=== PATIENT | male | born 1980 | race Caucasian/White ===

== ENCOUNTER 2016-09-14 12:50 | Emergency (ER) | payer OTHER, BC ==
[~2016-09-14] VITALS: Ht 180.3 cm; Wt 105.5 kg
[~2016-09-14 12:50] MED LIST: ALBU1AER9 INH; HYOS1TAB PO; SUMA6KIT IM
[2016-09-14 12:55] VITALS: TEMP 36.4; Ht 180.3 cm; Wt 105.5 kg
[2016-09-14] MEDS ORDERED: LEVO5TAB2 PO (13:04)
[2016-09-14] MEDS ORDERED: MDRDP21 PO (13:04)
[2016-09-14] MEDS ORDERED: DOXY100C2 PO (13:04)
[2016-09-14] MEDS ORDERED: KETOROLAC TROMETHAMINE 60 MG/2 ML VIAL IM STA (13:05)
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
[2016-09-14] MEDS ORDERED: HYDR-5688 PO (14:12)
[2016-09-14] MEDS ORDERED: CYCL10TA6 PO (14:12)
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
[2016-09-14 14:27] VITALS: BP 121/78; PULSE 81; O2SAT 98
== END 2016-09-14 14:28 | disposition home or self-care (01) ==
LOC: C.EDB 12:52 → C.EDD 14:28
DX: S16.1XXA Strain of muscle, fascia and tendon at neck level, initial encounter (principal); S46.911A Strain of unspecified muscle, fascia and tendon at shoulder and upper arm level, right arm, initial encounter; J45.909 Unspecified asthma, uncomplicated; Z79.899 Other long term (current) drug therapy; Z87.09 Personal history of other diseases of the respiratory system; Z87.19 Personal history of other diseases of the digestive system; Z83.3 Family history of diabetes mellitus; V43.52XA Car driver injured in collision with other type car in traffic accident, initial encounter

== ENCOUNTER → 2016-10-19 | Outpatient (CLI) | payer BC ==
[~2016-10-19] MED LIST changes: -ALBU1AER9 INH; +DOXY100C2 PO; +HYDR-5688 PO; -HYOS1TAB PO; +LEVO5TAB2 PO; +MDRDP21 PO; -SUMA6KIT IM
--- NOTE | 2016-10-19 16:45 | DIAGNOSTIC IMAGING REPORT ---
MRI right knee RIGHT LOWER EXT JOINT WITHOUT CLINICAL HISTORY: RIGHT KNEE PAIN Right pain TECHNIQUE: MRI multi axial acquisition COMPARISON STUDY: None FINDINGS: Signal characteristics the osseous structures are unremarkable. There is minimal degenerative subchondral cyst formation anterior aspect lateral femoral condyle. There are findings of moderate degenerative thinning of the articular services of the lateral and to a lesser extent medial joint compartment. Anterior and posterior cruciate ligaments are intact. Evaluation of the menisci shows no evidence for acute meniscal tear. Slight truncation mid medial meniscus possibly postoperative Patellofemoral joint shows a minimal degree of chondromalacia patella. Articular services thinning is present. Medial and lateral patellar retinaculum appear to be intact. IMPRESSION: 1. Mild degenerative change of the articular services of all major joint compartments. 2. Mild chondromalacia patella. 3. All major ligamentous and tendinous structures appear intact. Slight truncation mid apex medial meniscus possibly postoperative Electronically signed by: Keo Marti M.D. 10/19/2016 4:44 PM Dictated Date/Time: 10/19/2016 4:41 PM
== END ==
LOC: C.MRIBC 15:23
PROVIDERS: ATTEND Orthopaedic Surgery
DX: M25.561 Pain in right knee (principal)

== ENCOUNTER → 2017-04-16 | Outpatient (CLI) | payer BC ==
[~2017-04-16] MED LIST changes: -HYDR-5688 PO
[2017-04-16 12:25] LABS: BASO % 0.3 %; BASO ABS # 0.03 K/uL (0-0.2); EOS % 4.6 %; EOS ABS # 0.53 K/uL (0-0.5); HEMATOCRIT 44.9 % (42-52); HEMOGLOBIN 15.4 g/dL (14.0-18.0); IG# 0.02 K/uL (0.00-0.02); LYMPH % 25.2 %; LYMPH ABS # 2.92 K/uL (1.2-3.4); MEAN CELL VOLUME 90.3 fL (80-100); MEAN CORPUSCULAR HGB CONC 34.3 g/dl (32-36); MONO % 6.2 %; MONO ABS # 0.72 K/uL (0.11-0.59); NEUT % 63.5 %; NEUT ABS # 7.36 K/uL (1.4-6.5); PLATELET COUNT 410 K/uL (130-400); RED CELL DISTRIBUTION WIDTH CV 13.1 % (11.5-14.5); RED CELL DISTRIBUTION WIDTH SD 43.2 fL (36.4-46.3); WHITE BLOOD COUNT 11.58 K/uL (4.8-10.8)
[2017-04-16 12:37] LABS: BLOOD UREA NITROGEN 12 mg/dl (7-18); CALCIUM 8.9 mg/dl (8.5-10.1); CARBON DIOXIDE 30 mmol/L (21-32); CREATININE 0.96 mg/dl (0.60-1.40); GLUCOSE 98 mg/dl (70-99); POTASSIUM 4.1 mmol/L (3.5-5.1); SODIUM 134 mmol/L (136-145)
[2017-04-16 13:00] LABS: MONOSPOT NEG (NEG)
[2017-04-17 13:57] LABS: EBV EARLY ANTIGEN AB < 9.00 U/ML
== END | disposition home or self-care (01) ==
LOC: C.LABPBG 08:40
PROVIDERS: ATTEND Physician Assistant
DX: R53.83 Other fatigue (principal); J06.9 Acute upper respiratory infection, unspecified

== ENCOUNTER 2017-05-19 16:52 | Emergency (ER) | payer BC ==
[~2017-05-19] VITALS: Ht 180.3 cm; Wt 135.6 kg
[2017-05-19 16:54] VITALS: TEMP 37.1; Ht 180.3 cm; Wt 135.6 kg
[2017-05-19] MEDS ORDERED: IBUP-1050 PO (17:14)
[2017-05-19] MEDS ORDERED: CEPH500C2 PO (17:14)
[2017-05-19] MEDS ORDERED: OXYC1CAP5 PO (17:14)
[2017-05-19 17:41] LABS: BASO % 0.5 %; BASO ABS # 0.05 K/uL (0-0.2); EOS % 4.2 %; EOS ABS # 0.46 K/uL (0-0.5); HEMATOCRIT 42.9 % (42-52); HEMOGLOBIN 15.1 g/dL (14.0-18.0); IG# 0.03 K/uL (0.00-0.02); LYMPH % 32.2 %; LYMPH ABS # 3.49 K/uL (1.2-3.4); MEAN CELL VOLUME 88.8 fL (80-100); MEAN CORPUSCULAR HEMOGLOBIN 31.3 pg (25-34); MEAN CORPUSCULAR HGB CONC 35.2 g/dl (32-36); MEAN PLATELET VOLUME 9.4 fL (7.4-10.4); MONO % 6.9 %; MONO ABS # 0.75 K/uL (0.11-0.59); NEUT % 55.9 %; NEUT ABS # 6.05 K/uL (1.4-6.5); PLATELET COUNT 405 K/uL (130-400); RED CELL DISTRIBUTION WIDTH CV 12.8 % (11.5-14.5); RED CELL DISTRIBUTION WIDTH SD 41.4 fL (36.4-46.3); WHITE BLOOD COUNT 10.83 K/uL (4.8-10.8)
[2017-05-19 17:57] LABS: CALCIUM 10.1 mg/dl (8.5-10.1); CREATININE 0.91 mg/dl (0.60-1.40)
--- NOTE | 2017-05-19 18:07 | DIAGNOSTIC IMAGING REPORT ---
L VENOUS DOPP LOWER EXT UNILAT HISTORY: 36 years-old Male lle pain and swelling acute left lower extremity pain and swelling COMPARISON: None available TECHNIQUE: Multiple real-time sonogram images of the left lower extremity deep venous structures were obtained assessing grayscale appearance, color and spectral flow FINDINGS: There is an ovoid linear hypoechoic complex collection seen within the lateral mid to distal calf at the area of concern measuring 9.4 x 0.8 x 2.0 cm which appears to be present within the deep subcutaneous tissues without internal vascularity identified. There is normal flow, phasicity, compressibility and augmentation of the left lower extremity deep venous structures. IMPRESSION: 1. No sonographic evidence of deep venous thrombosis. 2. Ovoid linear hypoechoic complex collection within the lateral mid to distal calf at the area of concern measures up to 9.4 cm in length suggesting possible hematoma. Correlate with clinical exam and patient history. The above report was generated using voice recognition software. It may contain grammatical, syntax or spelling errors. Electronically signed by: Ector Dobson M.D. 05/19/2017 6:06 PM Dictated Date/Time: 05/19/2017 6:04 PM
[2017-05-19 18:33] LABS: INR 0.9 (0.9-1.1)
[2017-05-19 19:26] VITALS: BP 136/81; PULSE 79; O2SAT 97
--- NOTE | 2017-05-19 23:53 | EMERGENCY ROOM VISIT NOTE ---
History Report prepared by Radha: Karime Bermudez Under the Supervision of: Mio LermaO. First contact with patient: 16:58 Chief Complaint: LEG PAIN,LEG INJURY Stated Complaint: LEG PAIN POST SURGERY, POSSIBLE CLOT History of Present Illness The patient is a 36 year old male who presents to the Emergency Room with complaints of persistent left leg pain secondary to surgery that began 2 days ago. He notes that his leg started swelling. The patient states that he had surgery 6 days ago for his chronic compartment syndrome. He notes that he feels tingling and numbness in leg when he stands up and has difficulty putting weight on it because it makes the pain worse. He has no weakness in the leg. Tingling is only in the toes when he stands up. The patient has been taking Doxycycline, post surgery. Pt denies headache, change in vision, fevers, chest pain, shortness of breath, nausea, vomiting, diarrhea, pain with urination, and melena. Source of History: patient Onset: 2 days ago Position: leg (left) Quality: tingling, numbness Timing: other (persistent) Associated Symptoms: No fevers, No headache, No chest pain, No SOB, No nausea, No vomiting, No melena, No diarrhea, No urinary symptoms Review of Systems See HPI for pertinent positives & negatives. A total of 10 systems reviewed and were otherwise negative. Past Medical & Surgical Medical Problems: (1) Asthma (2) Diverticulosis (3) History of orthopedic surgery (4) Migraine (5) Pneumonia Surgical Problems: (1) History of cholecystectomy Family History Diabetes mellitus Social History Smoking Status: Never Smoker Alcohol Use: occasionally Marital Status: single Occupation Status: employed Current/Historical Medications Scheduled Cephalexin Monohydrate (Keflex), 500 MG PO QID Levocetirizine Dihydrochloride (Xyzal), 1 TAB PO DAILY Scheduled PRN Ibuprofen (Advil), 200-600 MG PO Q4H PRN for Pain Oxycodone Hcl (Oxycodone Hcl), 5 MG PO Q4H PRN for Pain Allergies Coded Allergies: Erythromycin (Verified Allergy, Severe, vomiting, 05/19/17) Sulfisoxazole (Verified Allergy, Severe, vomiting, 05/19/17) Levofloxacin (Verified Adverse Reaction, Unknown, DIZZINESS, 05/19/17) MEMORY LOSS/ZONED OUT Physical Exam Vital Signs Date Time Temp Pulse Resp B/P (MAP) Pulse Ox O2 Delivery O2 Flow Rate FiO2 05/19/17 19:26 79 16 136/81 97 05/19/17 17:32 90 20 138/84 95 Room Air 05/19/17 16:54 37.1 105 20 132/90 96 Room Air Physical Exam GENERAL: Sitting up in bed, alert, well appearing, well nourished, no distress, non-toxic EYE EXAM: normal conjunctiva. OROPHARYNX: no exudate, no erythema, lips, buccal mucosa, and tongue normal and mucous membranes are moist NECK: supple, no nuchal rigidity, no adenopathy, non-tender LUNGS: Clear to auscultation. Normal chest wall mechanics HEART: no murmurs, S1 normal and S2 normal ABDOMEN: abdomen soft, non-tender, normo-active bowel sounds, no masses, no rebound or guarding. . SKIN: no rashes and no bruising UPPER EXTREMITIES: upper extremities are grossly normal. LOWER EXTREMITIES: Bandages in bilateral lateral calves, left calve with bruising, left slightly large than right. Acute tenderness in distal and anterior charles, with bruising 2 inches circumferentially. DP and PT 2/4. NEURO EXAM: Normal sensorium, cranial nerves II-XII grossly intact, normal speech, no gross weakness of arms, no gross weakness of legs. Medical Decision & Procedures ER Provider Diagnostic Interpretation: Radiology results as stated below per my review and the radiologist's interpretation: L VENOUS DOPP LOWER EXT UNILAT HISTORY: 36 years-old Male lle pain and swelling acute left lower extremity pain and swelling COMPARISON: None available TECHNIQUE: Multiple real-time sonogram images of the left lower extremity deep venous structures were obtained assessing grayscale appearance, color and spectral flow FINDINGS: There is an ovoid linear hypoechoic complex collection seen within the lateral mid to distal calf at the area of concern measuring 9.4 x 0.8 x 2.0 cm which appears to be present within the deep subcutaneous tissues without internal vascularity identified. There is normal flow, phasicity, compressibility and augmentation of the left lower extremity deep venous structures. IMPRESSION: 1. No sonographic evidence of deep venous thrombosis. 2. Ovoid linear hypoechoic complex collection within the lateral mid to distal calf at the area of concern measures up to 9.4 cm in length suggesting possible hematoma. Correlate with clinical exam and patient history. The above report was generated using voice recognition software. It may contain grammatical, syntax or spelling errors. Electronically signed by: Ector Dobson M.D. 05/19/2017 6:06 PM Dictated Date/Time: 05/19/2017 6:04 PM Laboratory Results 05/19/17 17:23 Red Blood Count 4.83, Mean Corpuscular Volume 88.8, Mean Corpuscular Hemoglobin 31.3, Mean Corpuscular Hemoglobin Concent 35.2, Mean Platelet Volume 9.4, Neutrophils (%) (Auto) 55.9, Lymphocytes (%) (Auto) 32.2, Monocytes (%) (Auto) 6.9, Eosinophils (%) (Auto) 4.2, Basophils (%) (Auto) 0.5, Neutrophils # (Auto) 6.05, Lymphocytes # (Auto) 3.49, Monocytes # (Auto) 0.75, Eosinophils # (Auto) 0.46, Basophils # (Auto) 0.05 05/19/17 17:23 Test 05/19/17 17:23 05/19/17 18:10 White Blood Count 10.83 K/uL (4.8-10.8) Red Blood Count 4.83 M/uL (4.7-6.1) Hemoglobin 15.1 g/dL (14.0-18.0) Hematocrit 42.9 % (42-52) Mean Corpuscular Volume 88.8 fL (80-100) Mean Corpuscular Hemoglobin 31.3 pg (25-34) Mean Corpuscular Hemoglobin Concent 35.2 g/dl (32-36) Platelet Count 405 K/uL (130-400) Mean Platelet Volume 9.4 fL (7.4-10.4) Neutrophils (%) (Auto) 55.9 % Lymphocytes (%) (Auto) 32.2 % Monocytes (%) (Auto) 6.9 % Eosinophils (%) (Auto) 4.2 % Basophils (%) (Auto) 0.5 % Neutrophils # (Auto) 6.05 K/uL (1.4-6.5) Lymphocytes # (Auto) 3.49 K/uL (1.2-3.4) Monocytes # (Auto) 0.75 K/uL (0.11-0.59) Eosinophils # (Auto) 0.46 K/uL (0-0.5) Basophils # (Auto) 0.05 K/uL (0-0.2) RDW Standard Deviation 41.4 fL (36.4-46.3) RDW Coefficient of Variation 12.8 % (11.5-14.5) Immature Granulocyte % (Auto) 0.3 % Immature Granulocyte # (Auto) 0.03 K/uL (0.00-0.02) Anion Gap 11.0 mmol/L (3-11) Est Creatinine Clear Calc Drug Dose 156.3 ml/min Estimated GFR () 124.3 Estimated GFR (Non- 107.3 BUN/Creatinine Ratio 11.9 (10-20) Calcium Level 10.1 mg/dl (8.5-10.1) Prothrombin Time 9.7 SECONDS (9.0-12.0) Prothromb Time International Ratio 0.9 (0.9-1.1) Laboratory results per my review. ED Course ED COURSE: Vital signs were reviewed and showed normal vitals. The patients medical record was reviewed The above diagnostic studies were performed and reviewed. ED treatments and interventions as stated above. 1659: The patient was evaluated in room C1. A complete history and physical examination was performed. 174: I reevaluated the patient, who was resting. 182: I reviewed the patient's case with Dr. Mckenzie, [facility]. He recommends the patient follow up as an outpatient. 1853: Upon reevaluation, the patient is feeling better. I discussed the findings and the treatment plan with the patient. He verbalizes agreement and understanding. The patient was discharged home. Medical Decision Differential diagnosis: Etiologies such as DVT, compartment syndrome, musculoskeletal, infection, joint effusion, trauma, lymphedema, idiopathic, CHF, as well as others were entertained. Patient is a 36-year-old male who presents to ER who had chronic department syndrome with bilateral fasciotomy performed 6 days ago. 2 days ago he started to have worsening pain at the distal portion of his left fasciotomy. It is pinpoint in nature and circumferentially is about 2 inches. He does have bruising at this location. Neurovascularly intact. Duplex shows a clot in this location. No DVT. Discussed with his with his orthopedic surgeon who recommends following up as an outpatient. Patient and family were updated at bedside. He was discharged follow-up as an outpatient. Compartments were Soft. Good pulses. Discussed with Pt concerning signs and symptoms to watch out for. Pt was instructed to follow up with their PCP and discussed with the patient their option to return to the ED at anytime for persistent or worsening symptoms. The appropriate anticipatory guidance and out-patient management, including indications for return to the emergency department, were explained at length to the patient and understood. Medication Reconcilliation Current Medication List: was personally reviewed by me Blood Pressure Screening Patient's blood pressure: Normal blood pressure Consults Time Called: 1824 Consulting Physician: Vivek Houser- [facility]oped[facility] Returned Call: 1824 I reviewed the patient's case with [facility]. He recommends the patient follow up as an outpatient. Impression Primary Impression: Post-op bleeding Additional Impression: Leg pain, left Scribe Attestation The scribe's documentation has been prepared under my direction and personally reviewed by me in its entirety. I confirm that the note above accurately reflects all work, treatment, procedures, and medical decision making performed by me. Departure Information Dispostion Home / Self-Care Referrals Edison Haddad M.D. (PCP) Forms HOME CARE DOCUMENTATION FORM, IMPORTANT VISIT INFORMATION Patient Instructions My [facility] Additional Instructions Please follow up with your primary care doctor with in the next 24 hours. Any worsening of your symptoms, please return to the ED immediately. This includes any fevers greater than 100.4, worsening pain, chest pain, shortness breath, persistent nausea, vomiting, unable to eat or drink, or any other concerning signs or symptoms from your standpoint. Please take tylenol or Motrin as needed for pain. Problem Qualifiers Primary Impression: Post-op bleeding Surgical complication system/body Area: subcutaneous tissue Procedure type: non-dermatologic Qualified Codes: L76.22 - Postprocedural hemorrhage of skin and subcutaneous tissue following other procedure
== END 2017-05-19 19:13 | disposition home or self-care (01) ==
LOC: C.EDB 16:54 → C.EDC 19:13
DX: L76.22 Postprocedural hemorrhage of skin and subcutaneous tissue following other procedure (principal); M79.605 Pain in left leg; J45.909 Unspecified asthma, uncomplicated; G43.909 Migraine, unspecified, not intractable, without status migrainosus; K57.90 Diverticulosis of intestine, part unspecified, without perforation or abscess without bleeding; Z83.3 Family history of diabetes mellitus

== ENCOUNTER 2023-06-25 15:05 | Observation (INO) ==
--- NOTE | 2023-06-25 16:30 | Emergency Department Note ---
History of Present Illness General Chief complaint: TIA Symptoms Time Seen by Provider: 06/25/23 16:03 History of Present Illness Provider complaint: Multiple complaints Maximum Pain Intensity: 8 42-year-old male presents emergency department for multiple complaints. Patient states that 3 weeks ago he had COVID-19. He reports on June 19 he started having left-sided facial numbness. He states he was seen by his dentist and told he has chronic sinus infections was prescribed a Z-Jasper and his symptoms got better 2 days later. Patient reports that on June 21 he started having left-sided abdominal pain was seen in the emergency department discharged home. Patient reports that on June 22 he started having right-sided facial paresthesias. He reports that today at 1 PM he started having difficulty seeing felt lightheaded felt confused and then felt like his right arm was shaking. Home Medications Medication Instructions Recorded Confirmed Type sumatriptan succinate 6 mg/0.5 mL 6 mg (0.5 mL) subcut DIRECTED 06/20/20 06/25/23 Rx subcutaneous solution PRN Migraine Headache #2 mL albuterol sulfate 2.5 mg/3 mL 2.5 mg (3 mL) inhalation QID PRN 04/27/22 06/25/23 Rx (0.083 %) solution for nebulization Shortness Of Breath Or Wheezing #75 mL albuterol sulfate 90 mcg/actuation 2 puff inhalation DIRECTED PRN 08/14/22 06/25/23 Rx aerosol inhaler Shortness Of Breath Or Wheezing #8.5 grams celecoxib 200 mg capsule (Celebrex) 200 mg PO DAILY PRN pain 30 days 02/20/23 06/25/23 Rx #30 caps ergocalciferol (vitamin D2) 1,250 1,250 mcg PO Q7D #12 caps 06/18/23 06/25/23 Rx mcg (50,000 unit) capsule tirzepatide 2.5 mg/0.5 mL 2.5 mg subcut WK 06/25/23 06/25/23 History subcutaneous pen injector (Eladio) Allergies Allergy/AdvReac Type Severity Reaction Status Date / Time erythromycin base Allergy Severe vomiting Verified 06/25/23 14:13 sulfisoxazole Allergy Severe vomiting Verified 06/25/23 14:13 amoxicillin [From Augmentin] AdvReac Intermediate Dizziness Verified 06/25/23 14:13 /Chest tightness / fast heart beat clavulanic acid AdvReac Intermediate Dizziness Verified 06/25/23 14:13 [From Augmentin] / chest tightness / fast heart beat levofloxacin AdvReac Intermediate DIZZINESS Verified 06/25/23 14:13 / COGNITIVE ISSUES prednisone AdvReac Unknown Unknown Verified 06/25/23 14:13 doxycycline AdvReac Intermediate Back Pain Uncoded 06/25/23 14:13 Past Med/Surg History Medical History Somatic dysfunction of both lower extremities Nocturnal hypoxemia BMI greater than 40 Elevated LFTs Obstructive sleep apnea Asthma Musculoskeletal chest pain Mononucleosis Leg pain, left Ileus Abdominal pain Diverticulosis RUQ abdominal pain History of orthopedic surgery Pneumonia Asthma Surgical History Status post excision of lipoma (11/24/15) Left upper abdomen. History of surgery on left wrist History of cholecystectomy (08/28/13) History of arthroscopy of right shoulder (11/08/15) Impingement syndrome of right shoulder s/p subacromial decompression with partial acromioplasty and Eliane procedure. History of arthroscopy of left knee (11/21/16) Right medial menisectomy History of ankle surgery (06/27/17) left. Removal of deep implant. Family History Father Hearing loss Allergies Brother Asthma Allergies Mother Allergies Other Arthritis Sinusitis Denies family history of Ovarian cancer Prostate cancer Myocardial infarction Breast cancer Lung cancer Colorectal cancer Stroke Social History Smoking Status: Never smoker Second Hand Exposure: No; Do You Dip or Chew Tobacco: No; Hx Alcohol Use: No Hx Substance Use: No Preferred Language: Bolivian Communication Ability: Effective Visual Impairment: Limited Hearing Ability: Normal Manager Of Photography Required: No Beliefs That Will Affect Care: None marital status: Current Living Situation: Spouse and Family Current Living Situation Comment: 2 kids current occupational status: employed 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 How many Children do You have: 2 Feels Safe at Home: Yes Childhood Exposure to Second-Hand Smoke: No Dental Care, Regularly: Yes Physical Activity Frequency: Does not Exercise Seatbelt Use: always Sunscreen Use: Yes Assistive Devices: None Physical Exam Vital Signs Vital Signs - 24 hr 06/25/23 15:18 06/25/23 15:24 06/25/23 15:30 Temperature 36.8 C Temperature Source Oral Pulse Rate 86 91 H Pulse Rate [Apical] 91 H Pulse Rate from SpO2 Sensor Pulse Rhythm [Apical] Regular Pulse Strength [Apical] Normal Respiratory Rate 21 20 Respiratory Effort / Characteristics Non-Labored Non-Labored Spontaneous Respiratory Depth Normal Normal Respiratory Pattern Regular Regular Blood Pressure 135/97 Blood Pressure [Right Arm] 137/94 Blood Pressure Mean 109 Blood Pressure Mean [Right Arm] 108 Blood Pressure Position [Right Arm] Semi-fowlers Pulse Oximetry 97 98 Oxygen Delivery Method Room Air Room Air Sepsis Recent Fever Within 48 Hours No Sepsis New/Unexplained Change in Mental Status No Sepsis Action Taken by Nursing No Action Required 06/25/23 16:30 06/25/23 17:16 06/25/23 18:17 Temperature Temperature Source Pulse Rate 84 91 H Pulse Rate [Apical] Pulse Rate from SpO2 Sensor 85 91 H Pulse Rhythm [Apical] Pulse Strength [Apical] Respiratory Rate 17 16 Respiratory Effort / Characteristics Respiratory Depth Respiratory Pattern Blood Pressure 136/87 152/95 H 118/93 Blood Pressure [Right Arm] Blood Pressure Mean 103 113 101 Blood Pressure Mean [Right Arm] Blood Pressure Position [Right Arm] Pulse Oximetry 97 97 96 Oxygen Delivery Method Room Air Sepsis Recent Fever Within 48 Hours Sepsis New/Unexplained Change in Mental Status Sepsis Action Taken by Nursing 06/25/23 18:30 06/25/23 19:00 06/25/23 19:15 Temperature Temperature Source Pulse Rate 88 91 H 92 H Pulse Rate [Apical] Pulse Rate from SpO2 Sensor 90 91 H Pulse Rhythm [Apical] Pulse Strength [Apical] Respiratory Rate 14 13 Respiratory Effort / Characteristics Respiratory Depth Respiratory Pattern Blood Pressure 129/91 132/87 Blood Pressure [Right Arm] Blood Pressure Mean 103 102 Blood Pressure Mean [Right Arm] Blood Pressure Position [Right Arm] Pulse Oximetry 94 95 Oxygen Delivery Method Room Air Sepsis Recent Fever Within 48 Hours Sepsis New/Unexplained Change in Mental Status Sepsis Action Taken by Nursing 06/25/23 20:48 06/25/23 20:48 Temperature 36.8 C 36.8 C Temperature Source Oral Oral Pulse Rate Pulse Rate [Apical] 91 H 87 Pulse Rate from SpO2 Sensor Pulse Rhythm [Apical] Regular Regular Pulse Strength [Apical] Normal Normal Respiratory Rate 14 14 Respiratory Effort / Characteristics Non-Labored Spontaneous Non-Labored Spontaneous Respiratory Depth Normal Normal Respiratory Pattern Regular Regular Blood Pressure Blood Pressure [Right Arm] 139/98 139/98 Blood Pressure Mean Blood Pressure Mean [Right Arm] 111 111 Blood Pressure Position [Right Arm] Semi-fowlers Semi-fowlers Pulse Oximetry 95 96 Oxygen Delivery Method Room Air Room Air Sepsis Recent Fever Within 48 Hours Sepsis New/Unexplained Change in Mental Status Sepsis Action Taken by Nursing Physical Exam HENT: Exam performed. - Head: Normocephalic and atraumatic. - Right Ear: External ear normal. No mastoid erythema. Tympanic membrane nation and pearly - Left Ear: External ear normal. No mastoid erythema. Tympanic membrane nation and pearly. - Mouth/Throat: The oropharynx is clear and moist. No trismus in the jaw. No dental abscesses or uvula swelling. No oropharyngeal exudate or tonsillar abscesses. EYES: Conjunctivae and EOM are normal. Pupils are equal, round, and reactive to light. Right eye exhibits no discharge. Left eye exhibits no discharge. No scleral icterus. NECK: Normal range of motion. Neck supple. No JVD present. No rigidity. No tracheal deviation and normal range of motion present. CV: Normal rate, regular rhythm, normal heart sounds and intact distal pulses. There is no peripheral edema. Palpable radial pulses bue. PULM/CHEST: Effort normal and breath sounds normal. No respiratory distress. No stridor. He has no wheezes. He has no rales. ABD: The abdomen is soft. Bowel sounds are normal. He has no distension. No mass is present. There is tenderness to palpation of the left upper quadrant. There is no rebound, no guarding, no Fritz's sign and no tenderness at McBurney's point. Rovsig negative. MUSC/SKEL: Normal range of motion. There is no peripheral edema, tenderness or deformity. LYMPH: No cervical adenopathy. NEURO: He is alert and oriented to person, place, and time. He has normal strength. Right-sided facial droop. Coordination and gait normal. GCS eye subscore is 4. GCS verbal subscore is 5. GCS motor subscore is 6. Cerebellar tests wnl. SKIN: Skin is warm and dry. He is not diaphoretic. PSYCH: Bizarre and anxious affect. Course Course 1603: The patient was evaluated in room C2. A complete history and physical exam was performed Cardiac monitoring: An order was placed for continuous cardiac monitoring. The monitor shows a rate of 90 with sinus rhythm interpreted by me 1900: Vital signs stable. Labs show leukocytosis of 13.41 platelet count elevated at 403 creatinine kinase elevated at 485. Patient has chronically elevated white blood cell and creatinine kinase levels. Urinalysis negative. Imaging is negative. Given the patient's new onset of facial droop and ongoing paresthesias patient will be admitted for neurology evaluation and and MRIs of his brain for possible TIAs. Administered Medications Lorazepam 0.5 mg/ Syringe 0.5 mls @ 2 mls/min IV Q1H PRN PRN Reason: anxiety regarding mri Last Admin: 06/25/23 22:09 Dose: 2 mls/min Documented By: BEBE Discontinued Medications Acetaminophen (Acetaminophen 500 Mg Tab) 1,000 mg PO NOW STA Stop: 06/25/23 20:27 Last Admin: 06/25/23 20:46 Dose: 1,000 mg Documented By: BEBE Ioversol (Optiray 320 125ml) 117 ml IV ONCE ONE Stop: 06/25/23 17:33 Last Admin: 06/25/23 17:32 Dose: 117 ml Documented By: SEBASTIAN Medical Decision Making Medical Records Attestation: I reviewed the patient's medical records. External medical records reviewed. Patient was seen by his PCP today and was sent here as he was concerned that the patient had a TIA versus a migraine headache is in addition to his upper abdominal pain. The patient was reportedly given 381 mg of baby aspirin by the PCP prior to arrival. Patient was seen by Dr. Maharaj rheumatology on May 20, 2023 and was thought to have a complicated case and chronic neck pain. He was referred for neuromuscular referral at [facility]. Patient has multiple visits from December to March [address] Bingham for neck pain and muscle cramping. Laboratory Data Attestation: I reviewed the patient's lab results. 06/25/23 14:30 06/25/23 14:30 Lab Results 06/25/23 06/25/23 06/25/23 Range/Units 14:30 15:30 16:33 WBC 13.41 H (4.8-10.8) K/ul RBC 5.01 (4.70-6.10) M/uL Hgb 15.4 (14.0-18.0) g/dl Hct 43.4 (42.0-52.0) % MCV 86.6 (80.0-100.0) fL MCH 30.7 (25.0-34.0) pg MCHC 35.5 (32.0-36.0) g/dL RDW Std Deviation 39.8 (36.4-46.3) fL RDW Coeff of Jamaal 12.6 (11.5-14.5) % Plt Count 403 H (130-400) K/uL MPV 9.6 (9.4-12.4) fL Immature Gran % (Auto) 0.4 % Neut % (Auto) 74.3 % Lymph % (Auto) 17.6 % Dare % (Auto) 6.3 % Eos % (Auto) 1.0 % Baso % (Auto) 0.4 % Neut # (Auto) 9.97 H (1.40-6.50) K/uL Lymph # (Auto) 2.36 (1.20-3.40) K/uL Dare # (Auto) 0.84 H (0.11-0.59) K/uL Eos # (Auto) 0.14 (0.00-0.50) K/uL Baso # (Auto) 0.05 (0.00-0.20) K/uL Immature Gran # (Auto) 0.05 (0.01-0.20) K/uL PT 10.9 (9.0-12.0) Seconds INR 1.0 (0.9-1.1) APTT 31 (21-31) Seconds PTT Ratio 1.1 Sodium 136 (136-145) mmol/L Potassium 3.6 (3.5-5.1) mmol/L Chloride 103 (98-107) mmol/L Carbon Dioxide 25 (21-32) mmol/L Anion Gap 8 (3-11) BUN 17 (6-23) mg/dl Creatinine 0.97 (0.6-1.4) mg/dl Est Cr Clr Drug Dosing 135.8 ml/min Est GFR ( Amer) 110.4 ml/min Est GFR (Non-Af Amer) 95.2 ml/min BUN/Creatinine Ratio 17.5 (10-20) Glucose 139 H (70-99(Fasting)) mg/dl POC Glucose 141 H (70-99) mg/dl Calcium 10.1 (8.6-10.3) mg/dl Magnesium 1.9 (1.7-2.4) mg/dl Total Bilirubin 0.4 (0.2-1.0) mg/dl AST 35 (13-39) U/L ALT 33 (7-52) U/L Alkaline Phosphatase 91 (34-104) U/L Ammonia 35.0 (18-72) umol/L Total Creatine Kinase 485 H Cancelled (30-223) U/L Troponin I High Sens 4.0 (0-20) pg/ml Total Protein 8.4 H (6.0-8.3) gm/dl Albumin 4.8 (3.4-5.0) gm/dl Globulin 3.6 (2.5-4.0) gm/dl Albumin/Globulin Ratio 1.3 (0.9-2) Lipase 20 (11-82) U/L Prolactin 16.26 ng/ml Urine Color Urine Appearance (Clear) Urine pH (4.5-7.5) Ur Specific [place] (1.000-1.030) Urine Protein (Negative) Urine Glucose (UA) (Negative) Urine Ketones (Negative) Urine Blood (Negative) Urine Nitrite (Negative) Urine Bilirubin (Negative) Urine Urobilinogen (Negative) Ur Leukocyte Esterase (Negative) Ethyl Alcohol mg/dL < 10.0 (<10.0) mg/dl Adenovirus (PCR) (NotDetected) Anaplasma Smear See Comment Babesia Smear See Comment B. pertussis DNA (PCR) (NotDetected) B.parapertussis DNA PCR (NotDetected) Lyme Disease Screen Negative (Negative) C. pneumoniae DNA (PCR) (NotDetected) Coronavirus OC43 (PCR) (NotDetected) Coronavirus HKU1 (PCR) (NotDetected) Coronavirus 229E (PCR) (NotDetected) SARS-CoV-2 (PCR) (NotDetected) Coronavirus NL63 (PCR) (NotDetected) Monoscreen Negative (Negative) Human Metapneumovir PCR (NotDetected) Influenza Type A (PCR) (NotDetected) Influenza Type B (PCR) (NotDetected) M. pneumoniae (PCR) (NotDetected) Parainfluenza 1 (PCR) (NotDetected) Parainfluenza 2 (PCR) (NotDetected) Parainfluenza 3 (PCR) (NotDetected) Parainfluenza 4 (PCR) (NotDetected) RSV (PCR) (NotDetected) Entero/Rhino (PCR) (NotDetected) Blood Type O Positive Antibody Screen NEGATIVE 06/25/23 Range/Units 16:40 WBC (4.8-10.8) K/ul RBC (4.70-6.10) M/uL Hgb (14.0-18.0) g/dl Hct (42.0-52.0) % MCV (80.0-100.0) fL MCH (25.0-34.0) pg MCHC (32.0-36.0) g/dL RDW Std Deviation (36.4-46.3) fL RDW Coeff of Jamaal (11.5-14.5) % Plt Count (130-400) K/uL MPV (9.4-12.4) fL Immature Gran % (Auto) % Neut % (Auto) % Lymph % (Auto) % Dare % (Auto) % Eos % (Auto) % Baso % (Auto) % Neut # (Auto) (1.40-6.50) K/uL Lymph # (Auto) (1.20-3.40) K/uL Dare # (Auto) (0.11-0.59) K/uL Eos # (Auto) (0.00-0.50) K/uL Baso # (Auto) (0.00-0.20) K/uL Immature Gran # (Auto) (0.01-0.20) K/uL PT (9.0-12.0) Seconds INR (0.9-1.1) APTT (21-31) Seconds PTT Ratio Sodium (136-145) mmol/L Potassium (3.5-5.1) mmol/L Chloride (98-107) mmol/L Carbon Dioxide (21-32) mmol/L Anion Gap (3-11) BUN (6-23) mg/dl Creatinine (0.6-1.4) mg/dl Est Cr Clr Drug Dosing ml/min Est GFR ( Amer) ml/min Est GFR (Non-Af Amer) ml/min BUN/Creatinine Ratio (10-20) Glucose (70-99(Fasting)) mg/dl POC Glucose (70-99) mg/dl Calcium (8.6-10.3) mg/dl Magnesium (1.7-2.4) mg/dl Total Bilirubin (0.2-1.0) mg/dl AST (13-39) U/L ALT (7-52) U/L Alkaline Phosphatase (34-104) U/L Ammonia (18-72) umol/L Total Creatine Kinase (30-223) U/L Troponin I High Sens (0-20) pg/ml Total Protein (6.0-8.3) gm/dl Albumin (3.4-5.0) gm/dl Globulin (2.5-4.0) gm/dl Albumin/Globulin Ratio (0.9-2) Lipase (11-82) U/L Prolactin ng/ml Urine Color Yellow Urine Appearance Clear (Clear) Urine pH 6.5 (4.5-7.5) Ur Specific [place] 1.010 (1.000-1.030) Urine Protein Negative (Negative) Urine Glucose (UA) Negative (Negative) Urine Ketones 1+ H (Negative) Urine Blood Negative (Negative) Urine Nitrite Negative (Negative) Urine Bilirubin Negative (Negative) Urine Urobilinogen Negative (Negative) Ur Leukocyte Esterase Negative (Negative) Ethyl Alcohol mg/dL (<10.0) mg/dl Adenovirus (PCR) Not Detected (NotDetected) Anaplasma Smear Babesia Smear B. pertussis DNA (PCR) Not Detected (NotDetected) B.parapertussis DNA PCR Not Detected (NotDetected) Lyme Disease Screen (Negative) C. pneumoniae DNA (PCR) Not Detected (NotDetected) Coronavirus OC43 (PCR) Not Detected (NotDetected) Coronavirus HKU1 (PCR) Not Detected (NotDetected) Coronavirus 229E (PCR) Not Detected (NotDetected) SARS-CoV-2 (PCR) Not Detected (NotDetected) Coronavirus NL63 (PCR) Not Detected (NotDetected) Monoscreen (Negative) Human Metapneumovir PCR Not Detected (NotDetected) Influenza Type A (PCR) Not Detected (NotDetected) Influenza Type B (PCR) Not Detected (NotDetected) M. pneumoniae (PCR) Not Detected (NotDetected) Parainfluenza 1 (PCR) Not Detected (NotDetected) Parainfluenza 2 (PCR) Not Detected (NotDetected) Parainfluenza 3 (PCR) Not Detected (NotDetected) Parainfluenza 4 (PCR) Not Detected (NotDetected) RSV (PCR) Not Detected (NotDetected) Entero/Rhino (PCR) Not Detected (NotDetected) Blood Type Antibody Screen Imaging Data Attestation: I personally reviewed and interpreted this imaging study as follows: My Impression: Chest x-ray negative. Airway clear. No pneumothorax. No consolidation. No cardiomegaly or cephalization.. No free air under the diaphragm. No fractures of the skeletal structures. Radiologist's Impression: Chest X-Ray 06/25/23 16:20 SINGLE VIEW CHEST CLINICAL HISTORY: Neurological deficit. Stroke like symptoms. FINDINGS: 2 AP, portable, upright chest radiographs are compared to chest x-ray and chest CT dated 02/17/2020. The cardiomediastinal silhouette is unremarkable. The lungs and pleural spaces are clear. No pneumothorax is seen. The bony thorax is grossly intact. IMPRESSION: No active disease in the chest. ACT 112: Negative or not required by law. Electronically signed by: Wicho Cruz M.D. 06/25/2023 5:[address] 06/25/23 16:[address] OF THE BRAIN; CT ANGIOGRAM OF THE BRAIN; CT ANGIOGRAM OF THE NECK CLINICAL HISTORY: Neurological deficit. Stroke like symptoms. COMPARISON STUDY: CT of the brain dated 01/04/2023. TECHNIQUE: Unenhanced axial CT scan of the brain is performed. Subsequently, following the IV administration of 117 of Optiray 320, CT angiogram of the head and neck was performed from the aortic arch to the vertex. Images are reviewed in the axial, sagittal, and coronal planes. 3-D MIPS images are created and assessed. IV contrast was administered without complication. All measurements were calculated based on NASCET criteria. A dose lowering technique was utilized adhering to the principles of ALARA. FINDINGS: Brain parenchyma: The brain parenchyma is normal in appearance. There is no hemorrhage, mass effect, or evidence of acute territorial ischemia by CT criteria. There is no evidence of enhancing mass lesion on the angiogram phase images. The ventricles, sulci, and cisterns are normal in configuration. Nation- white matter differentiation is preserved. No extra-axial fluid collection is seen. Thoracic aorta: Visualized portions of the thoracic aorta are normal in caliber. The aortic arch demonstrates standard 3-vessel anatomy. Right carotid arterial system: The right common carotid artery is widely patent, as are the right internal and external carotid arteries. Left carotid arterial system: The left common carotid artery is widely patent, as are the left internal and external carotid arteries. Vertebral arteries: The vertebral arteries are widely patent bilaterally noting left-sided dominance. Subclavian arteries: Widely patent bilaterally. Intracranial vasculature: The internal carotid arteries are patent at the skull base, as are the anterior and middle cerebral arteries bilaterally. The vertebrobasilar system and posterior cerebral arteries are widely patent. The left vertebral artery is dominant. The right vertebral artery and the basilar artery are diminutive. The [place] is developmentally complete. There is no aneurysm, high-grade stenosis, or focal vessel cut off seen throughout the intracranial circulation. Jugular veins: Patent bilaterally. Dural sinuses: Patent. Lung apices: Partially visualized upper lobe lung parenchyma appears clear. Soft tissues: The visualized pharyngeal soft tissues are normal in appearance noting angiographic phase technique. The oropharyngeal airway appears widely patent. The salivary and thyroid glands are normal in appearance. No cervical lymphadenopathy is seen. Skeletal structures: The calvarium appears intact. The cervical spine is maintained noting mild spondylosis. Orbits: The bony orbits are intact. Orbital contents are normal as visualized. Sinuses and mastoids: There is trace mucosal thickening within the maxillary antra, the right sphenoid sinus, and the ethmoid sinuses. The mastoid air cells are well pneumatized. IMPRESSION: 1. There is no hemorrhage, mass effect, or evidence of acute territorial ischemia by CT criteria. 2. Unremarkable CT angiogram of the brain. 3. Unremarkable CT angiogram of the neck. ACT 112: Negative or not required by law. Electronically signed by: Wicho Cruz M.D. 06/25/2023 5:44 PM Head CTA 06/25/23 16:[address] OF THE BRAIN; CT ANGIOGRAM OF THE BRAIN; CT ANGIOGRAM OF THE NECK CLINICAL HISTORY: Neurological deficit. Stroke like symptoms. COMPARISON STUDY: CT of the brain dated 01/04/2023. TECHNIQUE: Unenhanced axial CT scan of the brain is performed. Subsequently, following the IV administration of 117 of Optiray 320, CT angiogram of the head and neck was performed from the aortic arch to the vertex. Images are reviewed in the axial, sagittal, and coronal planes. 3-D MIPS images are created and assessed. IV contrast was administered without complication. All measurements were calculated based on NASCET criteria. A dose lowering technique was utilized adhering to the principles of ALARA. FINDINGS: Brain parenchyma: The brain parenchyma is normal in appearance. There is no hemorrhage, mass effect, or evidence of acute territorial ischemia by CT criteria. There is no evidence of enhancing mass lesion on the angiogram phase images. The ventricles, sulci, and cisterns are normal in configuration. Nation- white matter differentiation is preserved. No extra-axial fluid collection is seen. Thoracic aorta: Visualized portions of the thoracic aorta are normal in caliber. The aortic arch demonstrates standard 3-vessel anatomy. Right carotid arterial system: The right common carotid artery is widely patent, as are the right internal and external carotid arteries. Left carotid arterial system: The left common carotid artery is widely patent, as are the left internal and external carotid arteries. Vertebral arteries: The vertebral arteries are widely patent bilaterally noting left-sided dominance. Subclavian arteries: Widely patent bilaterally. Intracranial vasculature: The internal carotid arteries are patent at the skull base, as are the anterior and middle cerebral arteries bilaterally. The vertebrobasilar system and posterior cerebral arteries are widely patent. The left vertebral artery is dominant. The right vertebral artery and the basilar artery are diminutive. The [place] is developmentally complete. There is no aneurysm, high-grade stenosis, or focal vessel cut off seen throughout the intracranial circulation. Jugular veins: Patent bilaterally. Dural sinuses: Patent. Lung apices: Partially visualized upper lobe lung parenchyma appears clear. Soft tissues: The visualized pharyngeal soft tissues are normal in appearance noting angiographic phase technique. The oropharyngeal airway appears widely patent. The salivary and thyroid glands are normal in appearance. No cervical lymphadenopathy is seen. Skeletal structures: The calvarium appears intact. The cervical spine is maintained noting mild spondylosis. Orbits: The bony orbits are intact. Orbital contents are normal as visualized. Sinuses and mastoids: There is trace mucosal thickening within the maxillary antra, the right sphenoid sinus, and the ethmoid sinuses. The mastoid air cells are well pneumatized. IMPRESSION: 1. There is no hemorrhage, mass effect, or evidence of acute territorial ischemia by CT criteria. 2. Unremarkable CT angiogram of the brain. 3. Unremarkable CT angiogram of the neck. ACT 112: Negative or not required by law. Electronically signed by: Wicho Cruz M.D. 06/25/2023 5:44 PM Neck CTA 06/25/23 16:[address] OF THE BRAIN; CT ANGIOGRAM OF THE BRAIN; CT ANGIOGRAM OF THE NECK CLINICAL HISTORY: Neurological deficit. Stroke like symptoms. COMPARISON STUDY: CT of the brain dated 01/04/2023. TECHNIQUE: Unenhanced axial CT scan of the brain is performed. Subsequently, following the IV administration of 117 of Optiray 320, CT angiogram of the head and neck was performed from the aortic arch to the vertex. Images are reviewed in the axial, sagittal, and coronal planes. 3-D MIPS images are created and assessed. IV contrast was administered without complication. All measurements were calculated based on NASCET criteria. A dose lowering technique was utilized adhering to the principles of ALARA. FINDINGS: Brain parenchyma: The brain parenchyma is normal in appearance. There is no hemorrhage, mass effect, or evidence of acute territorial ischemia by CT criteria. There is no evidence of enhancing mass lesion on the angiogram phase images. The ventricles, sulci, and cisterns are normal in configuration. [place]- white matter differentiation is preserved. No extra-axial fluid collection is seen. Thoracic aorta: Visualized portions of the thoracic aorta are normal in caliber. The aortic arch demonstrates standard 3-vessel anatomy. Right carotid arterial system: The right common carotid artery is widely patent, as are the right internal and external carotid arteries. Left carotid arterial system: The left common carotid artery is widely patent, as are the left internal and external carotid arteries. Vertebral arteries: The vertebral arteries are widely patent bilaterally noting left-sided dominance. Subclavian arteries: Widely patent bilaterally. Intracranial vasculature: The internal carotid arteries are patent at the skull base, as are the anterior and middle cerebral arteries bilaterally. The vertebrobasilar system and posterior cerebral arteries are widely patent. The left vertebral artery is dominant. The right vertebral artery and the basilar artery are diminutive. The [place] is developmentally complete. There is no aneurysm, high-grade stenosis, or focal vessel cut off seen throughout the intracranial circulation. Jugular veins: Patent bilaterally. Dural sinuses: Patent. Lung apices: Partially visualized upper lobe lung parenchyma appears clear. Soft tissues: The visualized pharyngeal soft tissues are normal in appearance noting angiographic phase technique. The oropharyngeal airway appears widely patent. The salivary and thyroid glands are normal in appearance. No cervical lymphadenopathy is seen. Skeletal structures: The calvarium appears intact. The cervical spine is maintained noting mild spondylosis. Orbits: The bony orbits are intact. Orbital contents are normal as visualized. Sinuses and mastoids: There is trace mucosal thickening within the maxillary antra, the right sphenoid sinus, and the ethmoid sinuses. The mastoid air cells are well pneumatized. IMPRESSION: 1. There is no hemorrhage, mass effect, or evidence of acute territorial ischemia by CT criteria. 2. Unremarkable CT angiogram of the brain. 3. Unremarkable CT angiogram of the neck. ACT 112: Negative or not required by law. Electronically signed by: Wicho Cruz M.D. 06/25/2023 5:44 PM Abdomen/Pelvis CT 06/25/23 16:21 CT SCAN OF THE ABDOMEN AND PELVIS WITH IV CONTRAST CLINICAL HISTORY: Left upper quadrant abdominal pain. COMPARISON STUDY: Abdominal CT dated 09/07/2015. TECHNIQUE: Following the IV administration of 117 cc of Optiray 320, CT scan of the abdomen and pelvis is performed from the lung bases to the proximal femora. Images are reviewed in the axial, sagittal, and coronal planes. IV contrast was administered without complication. A dose lowering technique was utilized adhering to the principles of ALARA. CT DOSE: 2670.11 mGy.cm FINDINGS: Lung bases: The heart is normal in size and without pericardial effusion. A 5 mm right lower lobe pulmonary nodule on image #66 is pathologically indeterminant and new from 2016. A 3 mm lingular pulmonary nodule on image #16 is also new from previous. There are scattered calcified granulomas. No airspace consolidation or pleural effusion is identified. Liver: The contrast-enhanced liver is normal in size, contour, and attenuation. There is no intrahepatic biliary ductal dilatation. The hepatic veins and portal veins are patent. Gallbladder: Surgically absent noting clips in the gallbladder fossa. Spleen: Normal in size and attenuation. Pancreas: Unremarkable. Adrenal glands: Unremarkable. Kidneys: The contrast enhanced kidneys are normal in size and without hydronephrosis. The kidneys enhance symmetrically. Abdominal vasculature: The abdominal aorta is normal in course and caliber. Bowel: No bowel obstruction is seen. The appendix is well-visualized and normal. Peritoneum: There is no intraperitoneal free air or abdominal ascites. There is a fat-containing umbilical hernia. Lymphadenopathy: None. Pelvic viscera: The bladder, prostate, and seminal vesicles are normal as visualized. Skeletal structures: No lytic or blastic lesions are seen. There is mild sclerotic change noted in the sacroiliac joints. IMPRESSION: 1. No acute infectious or inflammatory findings are identified in the abdomen or pelvis. 2. Bibasilar pulmonary nodules measure up to 6 cm. These are pathologically determined and new from the 09/07/2015 examination. A follow-up chest CT in 3 months time is recommended for reassessment and full evaluation of the thorax. 3. Additional findings as above. ACT 112: Positive. There are findings on this exam that require communication between the performing entity and the patient following Patient Test Result Information Act ([place] Act 112) guidelines. Electronically signed by: Wicho Cruz M.D. 06/25/2023 7:13 PM ECG Data Attestation: I personally reviewed and interpreted this ECG as follows: Rate (beats per minute): 81 Rhythm: + normal sinus ECG Intervals/blocks: + Normal QRS, + Normal NE and + Normal QT-c ECG ST segments: + Normal ST segments MDM Narrative 1603: The patient was evaluated in room C2. A complete history and physical exam was performed Cardiac monitoring: An order was placed for continuous cardiac monitoring. The monitor shows a rate of 90 with sinus rhythm interpreted by me 1900: Vital signs stable. Labs show leukocytosis of 13.41 platelet count elevated at 403 creatinine kinase elevated at 485. Patient has chronically elevated white blood cell and creatinine kinase levels. Urinalysis negative. Imaging is negative. Given the patient's new onset of facial droop and ongoing paresthesias patient will be admitted for neurology evaluation and and MRIs of his brain for possible TIAs. Impression & Plan Facial droop, Facial paresthesia Discharge Plan Visit Data Chief Complaint: TIA Symptoms ED Provider: Tommy Carrasquillo Discharge Problem: Facial droop, Facial paresthesia Patient Disposition: Admitted As Inpatient Forms Stand Alone Forms: [facility] Prescriptions Prescriptions: No Action sumatriptan succinate 6 mg/0.5 mL solution 6 mg SQ DIRECTED PRN (Reason: Migraine Headache) Qty: 2 0RF albuterol sulfate 2.5 mg /3 mL (0.083 %) solution for nebulization 2.5 mg INHALATION QID PRN (Reason: Shortness Of Breath Or Wheezing) Qty: 75 0RF ergocalciferol (vitamin D2) 1,250 mcg (50,000 unit) capsule 1,250 mcg PO Q7D Qty: 12 0RF Rx Instructions: 1 tab po weekly for 12 weeks. Complete blood work after finishing prescription albuterol sulfate 90 mcg/actuation HFA aerosol inhaler 2 puff INHALATION DIRECTED PRN (Reason: Shortness Of Breath Or Wheezing) Qty: 8.5 1RF celecoxib [Celebrex] 200 mg capsule 200 mg PO DAILY PRN (Reason: pain) 30 Days Qty: 30 2RF Mounjaro 2.5 mg/0.5 mL pen injector 2.5 mg SUBCUT WK Referrals Referrals: Sanjeev Bingham DO [Primary Care Provider] -
[2023-06-25 16:37] LABS: Basophils # (auto) 0.05 K/uL (0.00-0.20); Basophils % (auto) 0.4 %; Eosinophils # (auto) 0.14 K/uL (0.00-0.50); Hematocrit (blood only) 43.4 % (42.0-52.0); Hemoglobin 15.4 g/dl (14.0-18.0); Immature Granulocytes # (auto) 0.05 K/uL (0.01-0.20); Immature Granulocytes % (auto) 0.4 %; Lymphocytes # (auto) 2.36 K/uL (1.20-3.40); Lymphocytes % (auto) 17.6 %; Mean Corpuscular Hemoglobin 30.7 pg (25.0-34.0); Mean Corpuscular Hgb Conc 35.5 g/dL (32.0-36.0); Mean Corpuscular Volume 86.6 fL (80.0-100.0); Mean Platelet Volume 9.6 fL (9.4-12.4); Monocytes # (auto) 0.84 K/uL (0.11-0.59); Monocytes % (auto) 6.3 %; Neutrophils # (auto) 9.97 K/uL (1.40-6.50); Neutrophils % (auto) 74.3 %; Platelet Count 403 K/uL (130-400); RDW Coefficient of Variation 12.6 % (11.5-14.5); RDW Standard Deviation 39.8 fL (36.4-46.3); Red Blood Count 5.01 M/uL (4.70-6.10); White Blood Count 13.41 K/ul (4.8-10.8)
[2023-06-25 16:50] LABS: Appearance Urine Clear (Clear); Bilirubin Urine Negative (Negative); Blood Urine Negative (Negative); Color Urine Yellow; Glucose Urine UA Negative (Negative); Ketones Urine 1+ (Negative); Leukocyte Esterase Urine Negative (Negative); Nitrite Urine Negative (Negative); Protein Urine Negative (Negative); Urobilinogen Urine Negative (Negative); pH Urine 6.5 (4.5-7.5)
[2023-06-25 16:55] LABS: Albumin Level 4.8 gm/dl (3.4-5.0); Bilirubin,Total 0.4 mg/dl (0.2-1.0); Calcium 10.1 mg/dl (8.6-10.3); Magnesium 1.9 mg/dl (1.7-2.4); Potassium 3.6 mmol/L (3.5-5.1)
[2023-06-25 17:01] LABS: Albumin Globulin Ratio 1.3 (0.9-2); BUN Creatinine Ratio 17.5 (10-20); Creatinine Clr Calc Pharmacy 135.8 ml/min; Est GFR (African American) 110.4 ml/min; Est GFR (Non-African American) 95.2 ml/min; Globulin 3.6 gm/dl (2.5-4.0); Total Protein 8.4 gm/dl (6.0-8.3)
--- NOTE | 2023-06-25 17:11 | XRay Report ---
SINGLE VIEW CHEST CLINICAL HISTORY: Neurological deficit. Stroke like symptoms. FINDINGS: 2 AP, portable, upright chest radiographs are compared to chest x-ray and chest CT dated . The cardiomediastinal silhouette is unremarkable. The lungs and pleural spaces are clear. N o pneumothorax is seen. The bony thorax is grossly intact. IMPRESSION: No active disease in the chest. ACT 112: Negative or not required by law. Electronically signed by: Wicho Cruz M.D. 06/25/2023 5:10 PM
[2023-06-25 17:13] LABS: Partial Thromboplastin Ratio 1.1; Partial Thromboplastin Time 31 Seconds (21-31); Prothrombin Time 10.9 Seconds (9.0-12.0)
[2023-06-25] MEDS: OPTIRAY 320 125ml IV ONE (17:32)
[2023-06-25 17:41] LABS: Adenovirus PCR Not Detected (NotDetected); Bordetella parapertussis PCR Not Detected (NotDetected); Bordetella pertussis PCR Not Detected (NotDetected); Chlamydia pneumoniae PCR Not Detected (NotDetected); Coronavirus 229E PCR Not Detected (NotDetected); Coronavirus CoV-2 (COVID19)PCR Not Detected (NotDetected); Coronavirus HKU1 PCR Not Detected (NotDetected); Coronavirus NL63 PCR Not Detected (NotDetected); Coronavirus OC43PCR Not Detected (NotDetected); Human Metapneumovirus PCR Not Detected (NotDetected); Influenza A PCR Not Detected (NotDetected); Influenza B PCR Not Detected (NotDetected); Mycoplasma pneumoniae PCR Not Detected (NotDetected); Parainfluenza Virus 1 PCR Not Detected (NotDetected); Parainfluenza Virus 2 PCR Not Detected (NotDetected); Parainfluenza Virus 3 PCR Not Detected (NotDetected); Parainfluenza Virus 4 PCR Not Detected (NotDetected); Respiratory Syncytial VirusPCR Not Detected (NotDetected); Rhinovirus/Enterovirus PCR Not Detected (NotDetected)
--- NOTE | 2023-06-25 17:46 | CT Scan Report ---
UNENHANCED CT OF THE BRAIN; CT ANGIOGRAM OF THE BRAIN; CT ANGIOGRAM OF THE NECK CLINICAL HISTORY: Neurological deficit. Stroke like symptoms. COMPARISON STUDY: CT of the brain dated 01/04/2023. TECHNIQUE: Unenhanced axial CT scan of the brain is performed. Subsequently, following the IV adminis tration of 117 of Optiray 320, CT angiogram of the head and neck was performed from the aortic arch t o the vertex. Images are reviewed in the axial, sagittal, and coronal planes. 3-D MIPS images are cre ated and assessed. IV contrast was administered without complication. All measurements were calculate d based on NASCET criteria. A dose lowering technique was utilized adhering to the principles of ALA RA. FINDINGS: Brain parenchyma: The brain parenchyma is normal in appearance. There is no hemorrhage, mass effect, or evidence of acute territorial ischemia by CT criteria. There is no evidence of enhancing mass lesi on on the angiogram phase images. The ventricles, sulci, and cisterns are normal in configuration. Gr ay-white matter differentiation is preserved. No extra-axial fluid collection is seen. Thoracic aorta: Visualized portions of the thoracic aorta are normal in caliber. The aortic arch demo nstrates standard 3-vessel anatomy. Right carotid arterial system: The right common carotid artery is widely patent, as are the right int ernal and external carotid arteries. Left carotid arterial system: The left common carotid artery is widely patent, as are the left regulatory affairs internship al and external carotid arteries. Vertebral arteries: The vertebral arteries are widely patent bilaterally noting left-sided dominance. Subclavian arteries: Widely patent bilaterally. Intracranial vasculature: The internal carotid arteries are patent at the skull base, as are the ante rior and middle cerebral arteries bilaterally. The vertebrobasilar system and posterior cerebral bryan bull are widely patent. The left vertebral artery is dominant. The right vertebral artery and the bas ilar artery are diminutive. The [place] is developmentally complete. There is no aneurysm, h igh-grade stenosis, or focal vessel cut off seen throughout the intracranial circulation. Jugular veins: Patent bilaterally. Dural sinuses: Patent. Lung apices: Partially visualized upper lobe lung parenchyma appears clear. Soft tissues: The visualized pharyngeal soft tissues are normal in appearance noting angiographic pha se technique. The oropharyngeal airway appears widely patent. The salivary and thyroid glands are nor mal in appearance. No cervical lymphadenopathy is seen. Skeletal structures: The calvarium appears intact. The cervical spine is maintained noting mild spond ylosis. Orbits: The bony orbits are intact. Orbital contents are normal as visualized. Sinuses and mastoids: There is trace mucosal thickening within the maxillary antra, the right sphenoi d sinus, and the ethmoid sinuses. The mastoid air cells are well pneumatized. IMPRESSION: 1. There is no hemorrhage, mass effect, or evidence of acute territorial ischemia by CT criteria. 2. Unremarkable CT angiogram of the brain. 3. Unremarkable CT angiogram of the neck. ACT 112: Negative or not required by law. Electronically signed by: Wicho Cruz M.D. 06/25/2023 5:44 PM
--- NOTE | 2023-06-25 19:16 | CT Scan Report ---
CT SCAN OF THE ABDOMEN AND PELVIS WITH IV CONTRAST CLINICAL HISTORY: Left upper quadrant abdominal pain. COMPARISON STUDY: Abdominal CT dated 09/07/2015. TECHNIQUE: Following the IV administration of 117 cc of Optiray 320, CT scan of the abdomen and pelv is is performed from the lung bases to the proximal femora. Images are reviewed in the axial, sagitta l, and coronal planes. IV contrast was administered without complication. A dose lowering technique w as utilized adhering to the principles of ALARA. CT DOSE: 2670.11 mGy.cm FINDINGS: Lung bases: The heart is normal in size and without pericardial effusion. A 5 mm right lower lobe pul monary nodule on image #66 is pathologically indeterminant and new from 2016. A 3 mm lingular pulmona ry nodule on image #16 is also new from previous. There are scattered calcified granulomas. No airspa ce consolidation or pleural effusion is identified. Liver: The contrast-enhanced liver is normal in size, contour, and attenuation. There is no intrahepa tic biliary ductal dilatation. The hepatic veins and portal veins are patent. Gallbladder: Surgically absent noting clips in the gallbladder fossa. Spleen: Normal in size and attenuation. Pancreas: Unremarkable. Adrenal glands: Unremarkable. Kidneys: The contrast enhanced kidneys are normal in size and without hydronephrosis. The kidneys enh ance symmetrically. Abdominal vasculature: The abdominal aorta is normal in course and caliber. Bowel: No bowel obstruction is seen. The appendix is well-visualized and normal. Peritoneum: There is no intraperitoneal free air or abdominal ascites. There is a fat-containing umbi lical hernia. Lymphadenopathy: None. Pelvic viscera: The bladder, prostate, and seminal vesicles are normal as visualized. Skeletal structures: No lytic or blastic lesions are seen. There is mild sclerotic change noted in th e sacroiliac joints. IMPRESSION: 1. No acute infectious or inflammatory findings are identified in the abdomen or pelvis. 2. Bibasilar pulmonary nodules measure up to 6 cm. These are pathologically determined and new from t 09/07/2015 examination. A follow-up chest CT in 3 months time is recommended for reassessment and f ull evaluation of the thorax. 3. Additional findings as above. ACT 112: Positive. There are findings on this exam that require communication between the performing entity and the patient following Patient Test Result Information Act ([place] Act 112) guidelines. Electronically signed by: Wicho Cruz M.D. 06/25/2023 7:13 PM
[2023-06-25] MEDS: ACETAMINOPHEN 500 MG TAB PO STA (20:46)
--- NOTE | 2023-06-25 20:46 | History & Physical Report ---
Date of Service June 25, 2023 Assessment & Plan (1) TIA (transient ischemic attack): Plan: 42yo Male with PMH migraine chronic neck pain, DM2 diet controlled, HLD, OA, asthma here for concern right sided weakness and altered sensation sent to ED by PCP. New right sided weakness -received aspirin 381mg in PCP office today -CTA head neck wnl -GCS score 15 -ABCD2 score 5 -ordered MRI given persistent right facial droop and right hip flexor weakness, prn ativan available -stroke scale ordered -dysphagia screen ordered -NPO -PT/OT ordered -neurology consulted for TIA vs. migraine HLD -not currently on medication DM2 -diet controlled Chronic neck pain -pain control tylenol toradol Migraines -prn sumatriptan FENa: NPO Code Status: Full DVT PPX: ambulatory PT/OT: ordered Dispo: juan/Glenna Cornelius D.O. PGY 3, FCM (2) Migraine headache: (3) Type 2 diabetes mellitus: (4) Hyperlipidemia: (5) Gastroesophageal reflux disease: (6) Asthma: History of Present Illness Chief Complaint: Right sided weakness Primary Care Provider: Sanjeev Bingham DO 42yo Male with PMH migraine chronic neck pain, DM2 diet controlled, HLD, OA, asthma here for concern right sided weakness and altered sensation sent to ED by PCP. Patient states last saturday he developed left sided facial numbness of the forehead cheek and lips, he called his dentist who prescribed a z pack. 1.5 days later his symptoms improved along with his chronic neck pain. On Saturday he developed right sided numbness of his tongue and lips. By saturday yesterday this progressed to right sided facial numbness of forehead cheek lips and tongue. Also noted some nonspecific changes of his vision. Today patient was at work when other people at work noted drooping of his right eye and lips. Patient noted at a meeting today he felt light headed and dizzy, had confusion could not understand words around him, states he felt' euphoric, like he was walking on air', his neck pain also improved during this time. Later in day patient had visit with PCP, noted right arm shaking as he exitted the car, sat down in the waiting room and could not get up due to disorientation and right leg numbness, PCP noted right sided eye droop altered sensation right leg shaking and right pupil not responsive to light called ambulance to send him to ED, gave 381mg aspirin. In ED cta head neck brain negative for stroke, stroke alert and teleneurology was determined to be not needed. At this time patient states numbness of right side of face is improving, however he still has decreased sensation of his right cheek and difficulty moving right lips, has some decreased sensation of right lower arm, decreased sensation light touch and pain of right lower leg, weakness of right hip flexion states it 'feels much heavier'. Patient denies any N/V SOB difficulties with bowel or bladder Of note last Saturday he came to ED for left sided abd pain, diagnosed with colitis, sent home. He was positive for COVID several weeks ago with congestion. 3 years ago he had shingles along right forehead bordering eye. He has a history of migraines, however states current symptoms feel very different typically does not get muscle weakness Allergies Allergy/AdvReac Type Severity Reaction Status Date / Time erythromycin base Allergy Severe vomiting Verified 06/25/23 14:13 sulfisoxazole Allergy Severe vomiting Verified 06/25/23 14:13 amoxicillin [From Augmentin] AdvReac Intermediate Dizziness Verified 06/25/23 14:13 /Chest tightness / fast heart beat clavulanic acid AdvReac Intermediate Dizziness Verified 06/25/23 14:13 [From Augmentin] / chest tightness / fast heart beat levofloxacin AdvReac Intermediate DIZZINESS Verified 06/25/23 14:13 / COGNITIVE ISSUES prednisone AdvReac Unknown Unknown Verified 06/25/23 14:13 doxycycline AdvReac Intermediate Back Pain Uncoded 06/25/23 14:13 Home Medications Medication Instructions Recorded Confirmed Type sumatriptan succinate 6 mg/0.5 mL 6 mg (0.5 mL) subcut DIRECTED 06/20/20 06/25/23 Rx subcutaneous solution PRN Migraine Headache #2 mL albuterol sulfate 2.5 mg/3 mL 2.5 mg (3 mL) inhalation QID PRN 04/27/22 06/25/23 Rx (0.083 %) solution for nebulization Shortness Of Breath Or Wheezing #75 mL albuterol sulfate 90 mcg/actuation 2 puff inhalation DIRECTED PRN 08/14/22 06/25/23 Rx aerosol inhaler Shortness Of Breath Or Wheezing #8.5 grams celecoxib 200 mg capsule (Celebrex) 200 mg PO DAILY PRN pain 30 days 02/20/23 06/25/23 Rx #30 caps ergocalciferol (vitamin D2) 1,250 1,250 mcg PO Q7D #12 caps 06/18/23 06/25/23 Rx mcg (50,000 unit) capsule tirzepatide 2.5 mg/0.5 mL 2.5 mg subcut WK 06/25/23 06/25/23 History subcutaneous pen injector (Eladio) Past Med/Surg History Medical History Somatic dysfunction of both lower extremities Nocturnal hypoxemia BMI greater than 40 Elevated LFTs Obstructive sleep apnea Asthma Musculoskeletal chest pain Mononucleosis Leg pain, left Ileus Abdominal pain Diverticulosis RUQ abdominal pain History of orthopedic surgery Pneumonia Asthma Surgical History Status post excision of lipoma (11/24/15) Left upper abdomen. History of surgery on left wrist History of cholecystectomy (08/28/13) History of arthroscopy of right shoulder (11/08/15) Impingement syndrome of right shoulder s/p subacromial decompression with partial acromioplasty and Eliane procedure. History of arthroscopy of left knee (11/21/16) Right medial menisectomy History of ankle surgery (06/27/17) left. Removal of deep implant. Family History Father Hearing loss Allergies Brother Asthma Allergies Mother Allergies Other Arthritis Sinusitis Denies family history of Ovarian cancer Prostate cancer Myocardial infarction Breast cancer Lung cancer Colorectal cancer Stroke Social History Smoking Status: Never smoker Second Hand Exposure: No; Do You Dip or Chew Tobacco: No; Hx Alcohol Use: No Hx Substance Use: No Preferred Language: [place] Communication Ability: Effective Visual Impairment: Limited Hearing Ability: Normal Felt [place] Required: No Beliefs That Will Affect Care: None marital status: Current Living Situation: Spouse and Family Current Living Situation Comment: 2 kids current occupational status: employed 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 [employer] How many Children do You have: 2 Other Information That Helps Us Care for You: No Feels Safe at Home: Yes Childhood Exposure to Second-Hand Smoke: No Dental Care, Regularly: Yes Physical Activity Frequency: Does not Exercise Seatbelt Use: always Sunscreen Use: Yes Assistive Devices: None Physical Exam Constitutional: WD/WN, vitals as above Eyes: PERRL, conjunctivae normal, anicteric sclerae ENMT: external ear and nose normal, oropharynx normal Neck: trachea midline, no thyromegaly Respiratory: normal respiratory effort, lungs clear to auscultation Cardiovascular: RRR, no murmur, no edema Gastrointestinal (Abdomen): normal bowel sounds, soft, nontender, no hepatosplenomegaly Musculoskeletal: 4/5 right hip flexion Skin: no rashes, warm and dry Neurologic: Noted right sided facial droop of lips CN2-6, 8-12 intact b/l Results & Data Results & Data Vital Signs (Past 12 Hours) Vital Signs Temp Pulse Pulse Resp BP BP Pulse Ox 06/25/23 19:15 92 H 06/25/23 19:00 91 H 13 132/87 95 06/25/23 18:30 88 14 129/91 94 06/25/23 18:17 91 H 16 118/93 96 06/25/23 17:16 84 17 152/95 H 97 06/25/23 16:30 136/87 97 06/25/23 15:30 91 H 20 137/94 98 06/25/23 15:24 91 H 06/25/23 15:18 36.8 C 86 21 135/97 97 O2 Del Method 06/25/23 19:15 06/25/23 19:00 Room Air 06/25/23 18:30 06/25/23 18:17 06/25/23 17:16 06/25/23 16:30 Room Air 06/25/23 15:30 Room Air 06/25/23 15:24 06/25/23 15:18 Room Air Supervising Physician Co-Signing Physician Notes Attending addendum: I have physically seen this patient, have supervised the medical residents activities, and agree with the H&P unless as otherwise noted. Assessment and Plan: TIA/strokelike symptoms- Right facial paresthesias, right-sided weakness and shakes Patient was seen in the outpatient office and given [address] head negative CTA head and neck negative CT scan abdomen and pelvis showing bilateral pulmonary nodules MRI brain ordered and pending Stroke without tPA order set Consult PT/OT/speech/neurology Diabetes mellitus- Place on Accu-Cheks with NovoLog SSI if glucose is high in the a.m., glucose presently 139 Migraines- Question of the symptoms above may be a complicated migraine Will get neurologic opinion Has used sumatriptan as needed Resident Activity Tracking Resident Involvement: Resident Care Provided Care Provided: Adult Hospital Medicine (6) Asthma Asthma complication type: uncomplicated Asthma persistence: intermittent Asthma severity: mild Qualified Code(s): J45.20 - Mild intermittent asthma, uncomplicated
[2023-06-25] MEDS: LORazepam 0.5 MG in SYRINGE 0.25 ML IV PRN (22:09)
--- NOTE | 2023-06-25 23:29 | Magnetic Resonance Report ---
Exam(s): MRI HEAD Without Contrast EXAM: MR Head Without Intravenous Contrast CLINICAL HISTORY: Reason for exam: right sided facial droop. TECHNIQUE: Magnetic resonance images of the head/brain without intravenous contrast in multiple planes. COMPARISON: Comparison made to prior head CT from June 25, 2023. FINDINGS: Brain: Minimal nonspecific white matter changes. The flow voids at the base of the brain are intact. No mass. No hemorrhage. No acute infarct. Ventricles: Unremarkable. No ventriculomegaly. Bones/joints: Unremarkable. No acute fracture. Sinuses: Chronic ethmoid sinusitis. No acute sinusitis. Mastoid air cells: Unremarkable as visualized. No mastoid effusion. Orbits: Unremarkable as visualized. IMPRESSION: No evidence of acute intracranial pathology. Electronically signed by: Anastacia Luis MD 06/25/23 23:28 PM
[2023-06-26] MEDS: ACETAMINOPHEN 500 MG TAB PO PRN (00:48)
--- NOTE | 2023-06-26 00:48 | Billing Data ---
Date of Service June 26, 2023 Coding Level of Care Code 03196 INT INP/OBS CARE
--- NOTE | 2023-06-26 10:18 | Electrocardiogram Report ---
Test Reason : Blood Pressure : / mmHG Vent. Rate : 081 BPM Atrial Rate : 081 BPM P-R Int : 158 ms QRS Dur : 090 ms QT Int : 362 ms P-R-T Axes : -04 042 -01 degrees QTc Int : 420 ms Normal sinus rhythm Low voltage QRS Borderline ECG When compared with ECG of 21-JUN-2023 19:52, Non-specific change in ST segment in Inferior leads Nonspecific T wave abnormality now evident in Inferior leads Confirmed by Jeff Garcia ([id number]) on 06/26/2023 10:18:19 AM Referred By: REFERRED SELF Confirmed By:Jeff Garcia
--- NOTE | 2023-06-26 11:12 | Neurology Consultation ---
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 An evaluation with a neuromuscular disease specialist is pending at [facility] in a few weeks. He had seen [facility] rheumatology recently who recommended this neuromuscular disease referral. 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 He has also undergone fasciotomies previously to address compartment syndrome. 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 He may have had some associated compression or irritation of the peripheral right facial nerve in this context. 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 Although he does have a history of migraine, I do not think his current presentation would be consistent with this problem. A small left hemispheric stroke is possible although his MRI is negative in this regard. Nonetheless, given the possibility of an MRI negative stroke, would recommend aspirin 81 mg/day for the time being. Would consider checking up-to-date lipid panel. However, given that he has a somewhat undifferentiated underlying neuromuscular condition (see above), I would avoid starting a statin at this point in time. Would also recommend 30-day mobile cardiac outpatient telemetry. Again, patient will be seen at [facility] for what looks like myotonia, myotonia congenita. He will likely need an EMG evaluation (this test may reveal myotonia) as well as additional lab assessment. If it turns out that he does have myotonia congenita, treatment would typically include membrane stabilizing medications such as mexiletine or sometimes other appropriate antiseizure medications. Would hold off on starting this type of symptomatic tr eatment at this time, however. I would like him first to be seen by the neuromuscular disease specialist at [place]. Furthermore, given the possibility of Abraham's palsy, would consider treatment with a corticosteroid taper, 60 mg/day for 5 days followed by a 5-day taper of by 10 mg/day. I note his recent negative Lyme screening, would not need doxycycline. Again, this patient plans to be seen by the neuromuscular disease center at [facility] for further assessment of what looks like myotonia, possible myotonia congenita. I could follow him locally after this assessment is completed. Please call with any questions. History of Present Illness Reason for Consultation: TIA? Requesting Physician: Jose Attending Physician: Rachid Haney History of Present Illness The patient is a 42-year-old male who presented to the emergency department yesterday for further assessment of subacute variable neurologic symptoms. 1 week ago, he noted abrupt onset left facial numbness, he had contacted his dentist who thought he may have had an infection and was prescribed a Z-Jasper, his symptoms resolved within 1 to 2 days. However, 2 to 3 days after onset of left facial numbness, he then noticed right facial numbness and weakness involving the lower as well as upper aspects of the right facial musculature, with some weakness of right eyelid closure as well. He also reported some associated numbness along the inside of the mouth and tongue on the right-hand side as well as a transient episode of right arm and leg weakness and shaking. He reportedly was diagnosed with COVID 19 infection about 3 weeks ago. Furthermore, his past medical history is notable for an undifferentiated neuromuscular condition. He informs me that he has chronic muscle spasm and tightness in a variable distribution throughout his body, arms, legs, axial musculature, sometimes the neck and jaw. In fact, prior to the above symptom onset, he had been dealing with excessive right-sided neck muscular spasm, and jaw tightness. His muscles are significantly hypertrophied throughout. His symptoms tend to be worse at rest and without physical activity, some improvement with light exercise. He endorses a longstanding history of difficulty relaxing his major sales associate. No diplopia, dysphagia, or dysarthria. He had seen [facility] rheumatology, Dr. Maharaj, on May 20 2023 regarding a chronically elevated CK and neuromuscular symptoms including muscle hypertrophy as well as a history of fasciotomies to address compartment syndrome in the past. Given concern for a possible underlying neuromuscular disorder, he was referred to [facility] for further assessment, this appointment will be in a few weeks. Allergies Allergy/AdvReac Type Severity Reaction Status Date / Time erythromycin base Allergy Severe vomiting Verified 06/25/23 14:13 sulfisoxazole Allergy Severe vomiting Verified 06/25/23 14:13 amoxicillin [From Augmentin] AdvReac Intermediate Dizziness Verified 06/25/23 14:13 /Chest tightness / fast heart beat clavulanic acid AdvReac Intermediate Dizziness Verified 06/25/23 14:13 [From Augmentin] / chest tightness / fast heart beat levofloxacin AdvReac Intermediate DIZZINESS Verified 06/25/23 14:13 / COGNITIVE ISSUES prednisone AdvReac Unknown Unknown Verified 06/25/23 14:13 doxycycline AdvReac Intermediate Back Pain Uncoded 06/25/23 14:13 Home Medications Medication Instructions Recorded Confirmed Type sumatriptan succinate 6 mg/0.5 mL 6 mg (0.5 mL) subcut DIRECTED 06/20/20 06/25/23 Rx subcutaneous solution PRN Migraine Headache #2 mL albuterol sulfate 2.5 mg/3 mL 2.5 mg (3 mL) inhalation QID PRN 04/27/22 06/25/23 Rx (0.083 %) solution for nebulization Shortness Of Breath Or Wheezing #75 mL albuterol sulfate 90 mcg/actuation 2 puff inhalation DIRECTED PRN 08/14/22 06/25/23 Rx aerosol inhaler Shortness Of Breath Or Wheezing #8.5 grams celecoxib 200 mg capsule (Celebrex) 200 mg PO DAILY PRN pain 30 days 02/20/23 06/25/23 Rx #30 caps ergocalciferol (vitamin D2) 1,250 1,250 mcg PO Q7D #12 caps 06/18/23 06/25/23 Rx mcg (50,000 unit) capsule tirzepatide 2.5 mg/0.5 mL 2.5 mg subcut WK 06/25/23 06/25/23 History subcutaneous pen injector (Eladio) Patient History Medical History Somatic dysfunction of both lower extremities Nocturnal hypoxemia BMI greater than 40 Elevated LFTs Obstructive sleep apnea Asthma Musculoskeletal chest pain Mononucleosis Leg pain, left Ileus Abdominal pain Diverticulosis RUQ abdominal pain History of orthopedic surgery Pneumonia Asthma Surgical History Status post excision of lipoma (11/24/15) Left upper abdomen. History of surgery on left wrist History of cholecystectomy (08/28/13) History of arthroscopy of right shoulder (11/08/15) Impingement syndrome of right shoulder s/p subacromial decompression with partial acromioplasty and Eliane procedure. History of arthroscopy of left knee (11/21/16) Right medial menisectomy History of ankle surgery (06/27/17) left. Removal of deep implant. Family History Father Hearing loss Allergies Brother Asthma Allergies Mother Allergies Other Arthritis Sinusitis Denies family history of Ovarian cancer Prostate cancer Myocardial infarction Breast cancer Lung cancer Colorectal cancer Stroke Social History Smoking Status: Never smoker Second Hand Exposure: No; Do You Dip or Chew Tobacco: No; Hx Alcohol Use: No Hx Substance Use: No Preferred Language: Ukrainian Communication Ability: Effective Visual Impairment: Limited Hearing Ability: Normal Director Trade Required: No Beliefs That Will Affect Care: None marital status: Current Living Situation: Spouse and Family Current Living Situation Comment: 2 kids current occupational status: employed 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 How many Children do You have: 2 Other Information That Helps Us Care for You: No Feels Safe at Home: Yes Childhood Exposure to Second-Hand Smoke: No Dental Care, Regularly: Yes Physical Activity Frequency: Does not Exercise Seatbelt Use: always Sunscreen Use: Yes Assistive Devices: None Review of Systems Constitutional: no fever and no chills Eyes: no blind spots and no diplopia Ear, Nose, Mouth, Throat: no hearing loss Respiratory: no cough and no dyspnea Cardiovascular: no chest pain and no palpitations Gastrointestinal: no nausea and no vomiting Genitourinary: no dysuria Musculoskeletal: as per Subjective / HPI and + stiffness Integumentary: no rash and no lesions Neurologic: as per Subjective / HPI; no headache(s), no abnormal speech, no confusion and no memory loss Psychiatric: + anxiety Hematologic / Lymphatic: no easy bleeding and no easy bruising Exam (Neuro) Constitutional: well developed and well nourished; no acute distress Eyes: normal visual jiang by confrontation, PERRL and EOM intact bilaterally; no nystagmus Neurologic: Oriented to:: Person, Place and Time Memory: Short Term Intact and Remote Intact Attention: Span Intact and Concentration Intact Speech Fluency: negative Dysarthria or Dysfluency Speech Aphasia: negative Aphasia Fund of Knowledge: Current Events, Past History and Vocabulary Cranial Nerves: Normal II, III, IV, , VIII, IX, X, XI and XII; Abnorm V (Mild reduction to light touch for the right mid and lower face) or VII (Mild upper and lower right facial weakness noted, able to close the right eye although there is mild weakness of right eyelid closure) Motor Strength: Normal Lower Extremities and Normal Upper Extremities Motor Tone: Generalized Hypertonicity Muscle Bulk/Involuntary Movements: Muscle Hypertrophy Sensation: Light Touch Intact, Pain/Temperature Intact and Proprioception Intact Coordination: Normal; negative Dysdiadochokinesia, Finger-Nose Abnormal or Heel-Salazar Abnormal Deep Tendon Reflexes: Rt Triceps: 2+, Lt Triceps: 2+, Rt Biceps: 2+, Lt Biceps: 2+, Rt Brachioradialis: 2+, Lt Brachioradialis: 2+, Rt Patellar: 2+, Lt Patellar: 2+, Rt Ankle: 2+ and Lt Ankle: 2+ Details: Mild major sales associate myotonia noted bilaterally Results & Data Vital Signs (Past 12 Hours) Vital Signs Pulse Resp BP Pulse Ox Pulse Ox O2 Del Method O2 Del Method 06/26/23 08:00 74 15 130/96 95 Room Air 06/26/23 07:48 65 06/26/23 04:00 135/83 06/26/23 04:00 77 14 135/83 93 Room Air 06/26/23 02:59 72 06/26/23 02:00 74 16 123/75 94 Room Air 06/26/23 01:00 96 Room Air 06/26/23 00:00 74 16 134/90 95 Room Air 06/25/23 23:46 76 12 139/93 94 Room Air 06/25/23 23:41 87 17 126/89 93 Room Air 06/25/23 23:31 81 13 128/83 92 Room Air 06/25/23 23:20 82 06/25/23 23:19 96 H 14 120/88 95 Room Air 06/25/23 23:00 Room Air 06/25/23 23:00 Room Air Laboratory Results WBC 13.41, hemoglobin 15.4, hematocrit 43.4, platelet count 403, sodium 136, potassium 3.6, BUN 17, creatinine 0.97, glucose 139, calcium 10.1, magnesium 1.9, AST 35, ALT 33, total CK 45, ammonia 35.0, prolactin 16.26, vitamin D 23.9, TSH 2.262. Many of the previously ordered labs from [facility] rheumatology are still pending including a myositis specific antibody panel. Diagnostic Findings Brain MRI completed yesterday was unremarkable, no acute process, no significant abnormalities observed. I independently reviewed these images. No evidence of acute or subacute stroke. No white matter abnormality on T2/FLAIR sequences. CT of the head including CTA of the head and neck unremarkable as well. An electrocardiogram reveals a normal sinus rhythm, 81 bpm. A previous echocardiogram completed in February 2020 revealed a normal left ventricular size, normal systolic function, EF 55 to 60%, no regional wall motion abnormalities, no LVH, no significant valvular abnormalities. Coding Level of Care Code 95614 INT INP/OBS CARE 3/75MIN Diagnoses Myotonia M62.89 Facial paresthesia R20.2 Facial droop R29.810 Time Spent (min) 80 Comment Total time includes patient contact, chart review, counseling, note preparation
[2023-06-26 13:02] LABS: Chol HDL Ratio 4.7 (0-5)
--- NOTE | 2023-06-26 13:27 | Discharge Summary ---
Date of Service June 26, 2023 Admission HPI Per Admitting Provider 42yo Male with PMH migraine chronic neck pain, DM2 diet controlled, HLD, OA, asthma here for concern right sided weakness and altered sensation sent to ED by PCP. Patient states last saturday he developed left sided facial numbness of the forehead cheek and lips, he called his dentist who prescribed a z pack. 1.5 days later his symptoms improved along with his chronic neck pain. On Saturday he developed right sided numbness of his tongue and lips. By saturday yesterday this progressed to right sided facial numbness of forehead cheek lips and tongue. Also noted some nonspecific changes of his vision. Today patient was at work when other people at work noted drooping of his right eye and lips. Patient noted at a meeting today he felt light headed and dizzy, had confusion could not understand words around him, states he felt' euphoric, like he was walking on air', his neck pain also improved during this time. Later in day patient had visit with PCP, noted right arm shaking as he exitted the car, sat down in the waiting room and could not get up due to disorientation and right leg numbness, PCP noted right sided eye droop altered sensation right leg shaking and right pupil not responsive to light called ambulance to send him to ED, gave 381mg aspirin. In ED cta head neck brain negative for stroke, stroke alert and teleneurology was determined to be not needed. At this time patient states numbness of right side of face is improving, however he still has decreased sensation of his right cheek and difficulty moving right lips, has some decreased sensation of right lower arm, decreased sensation light touch and pain of right lower leg, weakness of right hip flexion states it 'feels much heavier'. Patient denies any N/V SOB difficulties with bowel or bladder Of note last Saturday he came to ED for left sided abd pain, diagnosed with colitis, sent home. He was positive for COVID several weeks ago with congestion. 3 years ago he had shingles along right forehead bordering eye. He has a history of migraines, however states current symptoms feel very different typically does not get muscle weakness Principal Diagnosis weakness Discharge Exam Constitutional WD/WN, vitals as above well developed and well nourished; no acute distress Eyes PERRL, conjunctivae normal, anicteric sclerae normal visual jiang by confrontation, PERRL and EOM intact bilaterally; no nystagmus ENMT external ear and nose normal, oropharynx normal Neck trachea midline, no thyromegaly Respiratory normal respiratory effort, lungs clear to auscultation Cardiovascular RRR, no murmur, no edema Gastrointestinal (Abdomen) normal bowel sounds, soft, nontender, no hepatosplenomegaly Skin no rashes, warm and dry Discharge Data Allergies Allergy/AdvReac Type Severity Reaction Status Date / Time erythromycin base Allergy Severe vomiting Verified 06/25/23 14:13 sulfisoxazole Allergy Severe vomiting Verified 06/25/23 14:13 amoxicillin [From Augmentin] AdvReac Intermediate Dizziness Verified 06/25/23 14:13 /Chest tightness / fast heart beat clavulanic acid AdvReac Intermediate Dizziness Verified 06/25/23 14:13 [From Augmentin] / chest tightness / fast heart beat levofloxacin AdvReac Intermediate DIZZINESS Verified 06/25/23 14:13 / COGNITIVE ISSUES prednisone AdvReac Unknown Unknown Verified 06/25/23 14:13 doxycycline AdvReac Intermediate Back Pain Uncoded 06/25/23 14:13 Consultations 06/25/23 19:22 ED Decision to Admit Stat 06/26/23 00:19 Consult Neurology Routine Ordered Studies 06/25/23 16:20 CT angio head w con Stat CT angio neck with con Stat CT head/brain wo con Stat 06/25/23 16:21 CT abd pelvis IV con only Stat 06/25/23 20:32 MRI Brain [MR brain wo con] Stat Hospital Course (1) TIA (transient ischemic attack): 42yo Male with PMH migraine chronic neck pain, DM2 diet controlled, HLD, OA, asthma here for concern right sided weakness and altered sensation sent to ED by PCP. 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 An evaluation with a neuromuscular disease specialist is pending at [facility] in a few weeks. He had seen [facility] rheumatology recently who recommended this neuromuscular disease referral. 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 He has also undergone fasciotomies previously to address compartment syndrome. 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 He may have had some associated compression or irritation of the peripheral right facial nerve in this context. 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 Although he does have a history of migraine, I do not think his current presentation would be consistent with this problem. A small left hemispheric stroke is possible although his MRI is negative in this regard. Nonetheless, given the possibility of an MRI negative stroke, would recommend aspirin 81 mg/day for the time being. Would consider checking up-to-date lipid panel. However, given that he has a somewhat undifferentiated underlying neuromuscular condition (see above), I would avoid starting a statin at this point in time. Would also recommend 30-day mobile cardiac outpatient telemetry. Again, patient will be seen at [facility] for what looks like myotonia, myotonia congenita. He will likely need an EMG evaluation (this test may reveal myotonia) as well as additional lab assessment. If it turns out that he does have myotonia congenita, treatment would typically include membrane stabilizing medications such as mexiletine or sometimes other appropriate antiseizure medications. Would hold off on starting this type of symptomatic treatment at this time, however. I would like him first to be seen by the neuromuscular disease specialist at [place]. Furthermore, given the possibility of Abraham's palsy, would consider treatment with a corticosteroid taper, 60 mg/day for 5 days followed by a 5-day taper of by 10 mg/day. I note his recent negative Lyme screening, would not need doxycycline. 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 I could follow him locally after this assessment is completed. From Hospitalist: -Obtained a fasting lipid profile prior to discharge -patient will have a 30 day heart monitor -patient will be discharged with a prednsione taper for possibility of bells palsy. HLD -not currently on medication DM2 -diet controlled Chronic neck pain -pain control tylenol toradol Migraines -prn sumatriptan (2) Migraine headache: (3) Type 2 diabetes mellitus: (4) Hyperlipidemia: (5) Gastroesophageal reflux disease: (6) Asthma: Total Time Total Time Spent Total Time Spent (In Minutes): 32 Discharge Plan Discharge Items Patient Disposition: Home - Self-Care Reason For Visit: TIA Discharge Diagnosis: TIA Activity: Resume your previous activity Non-emergency contact: Primary Care Provider Call non-emergency contact if: you have any medication questions Follow-up/Referrals: Sanjeev Bingham DO [Primary Care Provider] - Diet: Regular Addtl Attending Provider Instructions: Follow-up with neuromuscular disease specialist is pending at [facility] in a few weeks. Recommend 30-day mobile cardiac outpatient telemetry. We will start a corticosteroid taper, 60 mg/day for 5 days followed by a 5-day taper of by 10 mg/day. You can also follow-up with Neurology if needed. Pending Studies at Discharge: No Stand-Alone Forms: My [employer], Work/School Release, Smoking Cessation Medications and DC Order Prescriptions: New prednisone 10 mg tablet See Rx Instructions .ROUTE .COMPLEX Qty: 45 0RF Rx Instructions: By mouth once daily: Take 6 tabs for 5 days then 5 tabs for 1 days then 4 tabs for 1 days then 3 tabs for 1 day then 2 tabs for 1 day 1 tab for 1 day. Continued sumatriptan succinate 6 mg/0.5 mL solution 6 mg SQ DIRECTED PRN (Reason: Migraine Headache) Qty: 2 0RF albuterol sulfate 2.5 mg /3 mL (0.083 %) solution for nebulization 2.5 mg INHALATION QID PRN (Reason: Shortness Of Breath Or Wheezing) Qty: 75 0RF ergocalciferol (vitamin D2) 1,250 mcg (50,000 unit) capsule 1,250 mcg PO Q7D Qty: 12 0RF Rx Instructions: 1 tab po weekly for 12 weeks. Complete blood work after finishing prescription albuterol sulfate 90 mcg/actuation HFA aerosol inhaler 2 puff INHALATION DIRECTED PRN (Reason: Shortness Of Breath Or Wheezing) Qty: 8.5 1RF celecoxib [Celebrex] 200 mg capsule 200 mg PO DAILY PRN (Reason: pain) 30 Days Qty: 30 2RF Mounjaro 2.5 mg/0.5 mL pen injector 2.5 mg SUBCUT WK Discharge Orders: Discharge Order (Routine); Ordered 06/26/23 Ordered By: Rachid Haney Admission Data Admit Date/Time: 06/25/23 20:45 Attending Provider: Rachid Haney Admit Provider: Glenna Garcia Primary Care Provider: Sanjeev Bingham Other Providers: Godwin Gimenez; Edwin Gerene Other Interventions: Discharge Summary Assessment (RN) Last Done: 06/26/23 14:36 Coding Level of Care Code 89745 INP/OBS DISCH >30 MIN Diagnoses TIA (transient ischemic attack) G45.9 Migraine headache G43.909 Type 2 diabetes mellitus E11.9 Hyperlipidemia E78.5 Gastroesophageal reflux disease K21.9 Mild intermittent asthma without complication J45.20 Asthma complication type: uncomplicated Asthma persistence: intermittent Asthma severity: mild
[2023-06-28 23:23] LABS: Babesia microti DNA Not Detected (Not Detected)
== END 2023-06-26 14:40 | disposition home or self-care (01) | DRG 69 ==
LOC: SUATTDRO → ED 15:05 → INTOOBSV 20:45 → EDINP 20:45 → SUATTDRO 20:45 → EDINP 06-26 00:19

== ENCOUNTER 2023-06-27 14:57 | Observation (INO) ==
--- NOTE | 2023-06-27 15:04 | ED Triage Note ---
Date of Service June 27, 2023 Provider in Triage Author: Sepideh Olea History of Present Illness This patient was briefly evaluated while in triage. An abbreviated physical exam was performed. This patient is a 42-year-old Male who presents to the ED for evaluation of TIA symptoms. States he was here 06/25 for right sided facial droop and numbness and admitted for stroke work up. MRI negative. Seen by Dr. Greeen yesterday and possible incomplete hernández's palsy. Started on ASA, took [employer]ESS [employer]. Notes around 11a today developing LEFT facial numbness. Has had headache since discharge from hospital. No extremity involvement, facial droop, slurred speech. Physical Exam Constitutional: alert and oriented x3. no acute distress. HEENT: normocephalic, atraumatic. normal conjunctiva.PERRLA. EOM's grossly intact. Respiratory: equal chest rise. normal respiratory effort, no accessory muscle use. Cardiovascular: regular rate and rhythm. MSK: moves all 4 extremities spontaneously Neuro: GCS 15. R sided facial droop. No slurred speech. Extremity strength equal Psych:appropriate mood and affect. Initial orders for labs and / or imaging were placed and patient was immediately taken to treatment room for evaluation. Please see further documentation for the full ED course.
--- NOTE | 2023-06-27 15:43 | CT Scan Report ---
HEAD CT NONCONTRAST CT DOSE: 703.85 mGy.cm HISTORY: L headache, facial numbness TECHNIQUE: Multiaxial CT images of the head were performed without the use of intravenous contrast. A utomated exposure control was utilized for this study. A dose lowering technique was utilized adheri ng to the principles of ALARA. Comparison: Head CT and Brain MRI 06/25/2023. Findings: The paranasal sinuses and mastoid air cells are clear. The calvarium and skull base are int act. The ventricles and sulci are within normal limits. There is no mass, hematoma, midline shift, or acute infarct. Impression: No acute intracranial abnormality. ACT 112: Negative or not required by law. Electronically signed by: Jatin Longoria M.D. 06/27/2023 3:42 PM
[2023-06-27 15:47] LABS: Hematocrit (blood only) 45.2 % (42.0-52.0); Hemoglobin 15.7 g/dl (14.0-18.0); Mean Corpuscular Hemoglobin 30.3 pg (25.0-34.0); Mean Corpuscular Hgb Conc 34.7 g/dL (32.0-36.0); Mean Corpuscular Volume 87.3 fL (80.0-100.0); Mean Platelet Volume 9.6 fL (9.4-12.4); Platelet Count 430 K/uL (130-400); RDW Coefficient of Variation 12.5 % (11.5-14.5); RDW Standard Deviation 39.8 fL (36.4-46.3); Red Blood Count 5.18 M/uL (4.70-6.10); White Blood Count 18.69 K/ul (4.8-10.8)
[2023-06-27 16:04] LABS: Basophils # (auto) 0.03 K/uL (0.00-0.20); Basophils % (auto) 0.2 %; Immature Granulocytes # (auto) 0.11 K/uL (0.01-0.20); Immature Granulocytes % (auto) 0.6 %; Lymphocytes # (auto) 1.18 K/uL (1.20-3.40); Lymphocytes % (auto) 6.3 %; Monocytes # (auto) 0.13 K/uL (0.11-0.59); Monocytes % (auto) 0.7 %; Neutrophils # (auto) 17.24 K/uL (1.40-6.50); Neutrophils % (auto) 92.2 %
[2023-06-27 16:05] LABS: Albumin Globulin Ratio 1.4 (0.9-2); Albumin Level 4.9 gm/dl (3.4-5.0); BUN Creatinine Ratio 15.2 (10-20); Bilirubin,Total 0.4 mg/dl (0.2-1.0); Calcium 10.2 mg/dl (8.6-10.3); Creatinine Clr Calc Pharmacy 141.8 ml/min; Est GFR (African American) 117.6 ml/min; Est GFR (Non-African American) 101.5 ml/min; Globulin 3.5 gm/dl (2.5-4.0); Magnesium 1.8 mg/dl (1.7-2.4); Potassium 3.7 mmol/L (3.5-5.1); Total Protein 8.4 gm/dl (6.0-8.3)
--- NOTE | 2023-06-27 16:09 | XRay Report ---
XR chest 1V not portable HISTORY: neuro deficit, acute stroke suspected COMPARISON: Chest 06/25/2023. FINDINGS: The lungs are clear. Cardiac silhouette is normal in size. No pleural effusions. No pneumot horax. IMPRESSION: No acute process. ACT 112: Negative or not required by law. Electronically signed by: Jatin Longoria M.D. 06/27/2023 4:08 PM
[2023-06-27 16:11] LABS: Partial Thromboplastin Ratio 1.1; Partial Thromboplastin Time 30 Seconds (21-31); Prothrombin Time 10.9 Seconds (9.0-12.0)
[2023-06-27 16:12] LABS: Troponin I High Sensitivity 3.7 pg/ml (0-20)
--- NOTE | 2023-06-27 16:16 | Emergency Department Note ---
Impression & Plan Facial droop, Slurred speech, Headache, Hypertension ED Provider Note NAME: ANN ISRAEL AGE: 42 SEX: M : 1980 ARRIVES VIA: Walk-In INFORMANT: Patient ED PROVIDER(S): Grady Dominique DO CHIEF COMPLAINT: right sided facial droop and left facial pain and numbness HPI: Patient is a 42-year-old male who presents to the ER for evaluation of left facial numbness and tightness in his left neck in combination with a right-sided facial droop. He notes the left-sided facial numbness started having a right- sided facial droop shortly thereafter. He denies any other weakness or numbness in the arms or legs. No chest pain or shortness of breath. No nausea, vomiting, or diarrhea. No dysuria, urgency, or frequency. No other exacerbating or remitting factors. ADDITIONAL HISTORY OBTAINED: Per HPI Chronic Medical/Social Conditions Affecting Care: Per HPI PAST MEDICAL HISTORY:See Below PAST SURGICAL HISTORY:See Below FAMILY HISTORY:See Below SOCIAL HISTORY:See Below HOME MEDICATIONS:See Below ALLERGIES:See Below VITALS:See Below PHYSICAL EXAMINATION: GENERAL: Sitting up in bed, alert, well appearing, well nourished, no distress, non-toxic EYE EXAM: normal conjunctiva. PERRL and EOM's grossly intact. OROPHARYNX: no exudate, no erythema, lips, buccal mucosa, and tongue normal and mucous membranes are moist NECK: supple, no nuchal rigidity, no adenopathy, non-tender LUNGS: Clear to auscultation. Normal chest wall mechanics HEART: no murmurs, S1 normal and S2 normal ABDOMEN: abdomen soft, non-tender, normo-active bowel sounds, no masses, no rebound or guarding. BACK: Back is symmetrical on inspection and there is no deformity, no midline tenderness, no CVA tenderness. UPPER EXTREMITIES: upper extremities are grossly normal. LOWER EXTREMITIES: No pitting edema. NEURO EXAM: Normal sensorium, cranial nerves II-XII intact with a subtle right- sided facial droop which appears to resolve when talking, normal speech, no weakness of arms, no weakness of legs. No drift. Finger to nose intact. Gross sensation intact. MEDICAL DECISION MAKING: Patient is a 42-year-old male who presents ER for above-stated complaint with an extensive past medical history of a TIA, diabetes, obesity and anxiety. External records were reviewed and he was just recently admitted and discharged and seen by neurology for similar symptoms. Labs today show leukocytosis of 18,000 likely secondary to the steroids that he started after discharge as he was being treated for a Abraham's. INR unremarkable. BMP with slightly low CO2 at 20. Gap of 12. LFTs bilirubin was unremarkable. CK slightly up at 4 2. Troponin was negative. He does have a headache in combination with left-sided paresthesias and a right-sided facial droop which resolves when distracted. He is otherwise completely neurologically intact. CT of the head was negative. CTAs were not redone as they were just done within the past 48 hours. Discussed the case with neurology as he was significantly hypertensive we elected to admit him to the hospital service for close monitoring and further evaluation. Question if this is all secondary to migraines. Favor CVA is extremely unlikely. Not TNK candidate. Consults/Care Managements Discussions: Per [facility] Triage Nursing notes reviewed. Limited review of prior medical records performed Vital Signs: reviewed and remarkable for HTN and tachy Differential diagnosis: Differential Diagnosis includes but is not limited to ischemic Stroke, hemorrhagic stroke, bells palsy, mass, neoplasm, migraine headache, seizure, subarachnoid hemorrhage, TIA, and transient global amnesia. ER treatment provided: See below Diagnostics interpreted by me include EKG and cardiac monitoring as listed below: -Cardiac Monitoring: An order was placed for continuous cardiac monitoring. The monitor shows a rate of 92 with sinus rhythm. -ECG: Sinus rhythm rate 81 Normal axis No PVCs QTc 420 -Laboratory studies:Interpreted by me as stated above in MDM and shown below. Imaging studies: Xrays: As interpreted by me: Portable AP upright 1 view of the chest shows no focal infiltrate CTs show: CT of the head was negative Procedures:none Critical Care: None Past Med/Surg History Medical History Somatic dysfunction of both lower extremities Nocturnal hypoxemia BMI greater than 40 Elevated LFTs Obstructive sleep apnea Asthma Musculoskeletal chest pain Mononucleosis Leg pain, left Ileus Abdominal pain Diverticulosis RUQ abdominal pain History of orthopedic surgery Pneumonia Asthma Surgical History Status post excision of lipoma (11/24/15) Left upper abdomen. History of surgery on left wrist History of cholecystectomy (08/28/13) History of arthroscopy of right shoulder (11/08/15) Impingement syndrome of right shoulder s/p subacromial decompression with partial acromioplasty and Eliane procedure. History of arthroscopy of left knee (11/21/16) Right medial menisectomy History of ankle surgery (06/27/17) left. Removal of deep implant. Family History Father Hearing loss Allergies Brother Asthma Allergies Mother Allergies Other Arthritis Sinusitis Denies family history of Ovarian cancer Prostate cancer Myocardial infarction Breast cancer Lung cancer Colorectal cancer Stroke Social History Smoking Status: Never smoker Second Hand Exposure: No; Do You Dip or Chew Tobacco: No; Hx Alcohol Use: No Hx Substance Use: No Preferred Language: Surinamese Communication Ability: Effective Visual Impairment: Limited Hearing Ability: Normal Coating Machine Feeder Required: No Beliefs That Will Affect Care: None marital status: Current Living Situation: Spouse Current Living Situation Comment: 2 kids current occupational status: employed current occupation: [employer] How many Children do You have: 2 Feels Safe at Home: Yes Childhood Exposure to Second-Hand Smoke: No Dental Care, Regularly: Yes Physical Activity Frequency: Does not Exercise Seatbelt Use: always Sunscreen Use: Yes Assistive Devices: None Allergies Allergies Allergy/AdvReac Type Severity Reaction Status Date / Time erythromycin base Allergy Severe vomiting Verified 06/25/23 14:13 sulfisoxazole Allergy Severe vomiting Verified 06/25/23 14:13 amoxicillin [From Augmentin] AdvReac Intermediate Dizziness Verified 06/25/23 14:13 /Chest tightness / fast heart beat clavulanic acid AdvReac Intermediate Dizziness Verified 06/25/23 14:13 [From Augmentin] / chest tightness / fast heart beat levofloxacin AdvReac Intermediate DIZZINESS Verified 06/25/23 14:13 / COGNITIVE ISSUES prednisone AdvReac Unknown Unknown Verified 06/25/23 14:13 doxycycline AdvReac Intermediate Back Pain Uncoded 06/25/23 14:13 Home Meds Home Medications Medication Instructions Recorded Confirmed tirzepatide 2.5 mg/0.5 mL 2.5 mg subcut WK 06/25/23 06/27/23 subcutaneous pen injector (Eladio) Previous Rx's Medication Instructions Recorded sumatriptan succinate 6 mg/0.5 mL 6 mg (0.5 mL) subcut DIRECTED 06/20/20 subcutaneous solution PRN Migraine Headache #2 mL albuterol sulfate 2.5 mg/3 mL 2.5 mg (3 mL) inhalation QID PRN 04/27/22 (0.083 %) solution for nebulization Shortness Of Breath Or Wheezing #75 mL albuterol sulfate 90 mcg/actuation 2 puff inhalation DIRECTED PRN 08/14/22 aerosol inhaler Shortness Of Breath Or Wheezing #8.5 grams celecoxib 200 mg capsule (Celebrex) 200 mg PO DAILY PRN pain 30 days 02/20/23 #30 caps ergocalciferol (vitamin D2) 1,250 1,250 mcg PO Q7D #12 caps 06/18/23 mcg (50,000 unit) capsule prednisone 10 mg tablet See Rx Instructions .Route 06/26/23 .COMPLEX #45 tabs aspirin 81 mg tablet,delayed 81 mg PO DAILY #30 tabs 06/27/23 release lamotrigine 25 mg tablet 25 mg PO HS #30 tabs 06/27/23 Results & Data (ED) Vital Signs Vital Signs - 24 hr 06/27/23 15:01 06/27/23 16:47 06/27/23 17:01 Temperature 36.3 C L Temperature Source Temporal Artery Scan Pulse Rate 125 H 109 H 108 H Pulse Rate from SpO2 Sensor 108 H Pulse Rhythm Regular Respiratory Rate 20 23 Respiratory Effort / Characteristics Non-Labored Spontaneous Respiratory Depth Normal Blood Pressure 171/102 H 179/109 H Blood Pressure Mean 125 132 Pulse Oximetry 99 96 Oxygen Delivery Method Room Air Room Air Sepsis Recent Fever Within 48 Hours No Sepsis New/Unexplained Change in Mental Status No Sepsis Action Taken by Nursing No Action Required 06/27/23 17:16 06/27/23 17:30 Temperature Temperature Source Pulse Rate 108 H 121 H Pulse Rate from SpO2 Sensor 105 H 121 H Pulse Rhythm Respiratory Rate 23 19 Respiratory Effort / Characteristics Respiratory Depth Blood Pressure 152/95 H 139/88 Blood Pressure Mean 114 105 Pulse Oximetry 99 99 Oxygen Delivery Method Room Air Room Air Sepsis Recent Fever Within 48 Hours Sepsis New/Unexplained Change in Mental Status Sepsis Action Taken by Nursing Laboratory Data 06/27/23 15:25 06/27/23 15:25 Lab Results 06/27/23 Range/Units 15:25 WBC 18.69 H (4.8-10.8) K/ul RBC 5.18 (4.70-6.10) M/uL Hgb 15.7 (14.0-18.0) g/dl Hct 45.2 (42.0-52.0) % MCV 87.3 (80.0-100.0) fL MCH 30.3 (25.0-34.0) pg MCHC 34.7 (32.0-36.0) g/dL RDW Std Deviation 39.8 (36.4-46.3) fL RDW Coeff of Jamaal 12.5 (11.5-14.5) % Plt Count 430 H (130-400) K/uL MPV 9.6 (9.4-12.4) fL Immature Gran % (Auto) 0.6 % Neut % (Auto) 92.2 % Lymph % (Auto) 6.3 % [place] % (Auto) 0.7 % Eos % (Auto) 0.0 % Baso % (Auto) 0.2 % Neut # (Auto) 17.24 H (1.40-6.50) K/uL Lymph # (Auto) 1.18 L (1.20-3.40) K/uL [place] # (Auto) 0.13 (0.11-0.59) K/uL Eos # (Auto) 0.00 (0.00-0.50) K/uL Baso # (Auto) 0.03 (0.00-0.20) K/uL Immature Gran # (Auto) 0.11 (0.01-0.20) K/uL PT 10.9 (9.0-12.0) Seconds INR 1.0 (0.9-1.1) APTT 30 (21-31) Seconds PTT Ratio 1.1 Sodium 136 (136-145) mmol/L Potassium 3.7 (3.5-5.1) mmol/L Chloride 104 (98-107) mmol/L Carbon Dioxide 20 L (21-32) mmol/L Anion Gap 12 H (3-11) BUN 14 (6-23) mg/dl Creatinine 0.92 (0.6-1.4) mg/dl Est Cr Clr Drug Dosing 141.8 ml/min Est GFR ( Amer) 117.6 ml/min Est GFR (Non-Af Amer) 101.5 ml/min BUN/Creatinine Ratio 15.2 (10-20) Glucose 217 H (70-99(Fasting)) mg/dl Calcium 10.2 (8.6-10.3) mg/dl Magnesium 1.8 (1.7-2.4) mg/dl Total Bilirubin 0.4 (0.2-1.0) mg/dl AST 29 (13-39) U/L ALT 30 (7-52) U/L Alkaline Phosphatase 99 (34-104) U/L Total Creatine Kinase 402 H (30-223) U/L Troponin I High Sens 3.7 (0-20) pg/ml Total Protein 8.4 H (6.0-8.3) gm/dl Albumin 4.9 (3.4-5.0) gm/dl Globulin 3.5 (2.5-4.0) gm/dl Albumin/Globulin Ratio 1.4 (0.9-2) Administered Medications Atorvastatin Calcium (Atorvastatin 40 Mg Tab) 40 mg PO QAM JEFFRY Stop: 07/27/23 20:59 Last Admin: 06/27/23 21:22 Dose: 40 mg Documented By: LAVELL Heparin Sodium (Porcine) (Heparin Sod 5,000 Unit/0.5 Ml Vial) 5,000 units SQ Q8 JEFFRY Stop: 07/27/23 21:59 Last Admin: 06/27/23 21:22 Dose: 5,000 units Documented By: LAVELL Lamotrigine (Lamotrigine 25 Mg Tab) 25 mg PO HS JEFFRY; Protocol Stop: 07/27/23 20:59 Last Admin: 06/27/23 21:22 Dose: 25 mg Documented By: LAVELL Discontinued Medications Aspirin (Aspirin Chew 324 Mg) 81 mg PO NOW STA Stop: 06/27/23 17:06 Last Admin: 06/27/23 17:17 Dose: 81 mg Documented By: JUNG Diphenhydramine HCl (Diphenhydramine 50 Mg/Ml Vial) 50 mg IV NOW STA Stop: 06/27/23 17:06 Last Admin: 06/27/23 17:17 Dose: 50 mg Documented By: JUNG Sodium Chloride (Nss) 1,000 mls @ 999 mls/hr IV .Q1H1M JEFFRY Stop: 06/27/23 18:15 Last Infusion: 06/27/23 18:29 Dose: Infused Documented By: Admin: 06/27/23 17:16 Dose: 999 mls/hr Documented By: Infusion: 06/27/23 17:16 Dose: Infused Documented By: Admin: 06/27/23 16:23 Dose: 999 mls/hr Documented By: JUNG Prochlorperazine (Compazine) 2 mls @ 1 mls/min IV ONE ONE Stop: 06/27/23 17:06 Last Admin: 06/27/23 17:17 Dose: 1 mls/min Documented By: JUNG Magnesium Sulfate/Dextrose (Magnesium Sulfate / D5w) 1 gm in 100 mls @ 50 mls/hr IV ONE ONE Stop: 06/27/23 19:30 Last Admin: 06/27/23 20:08 Dose: 50 mls/hr Documented By: LAVELL Ketorolac Tromethamine (Ketorolac Tromethamine 15 Mg/Ml Vial) 15 mg IV NOW ONE Stop: 06/27/23 16:12 Last Admin: 06/27/23 16:25 Dose: 15 mg Documented By: JUNG Imaging Data Radiologist's Impression: Head CT 06/27/23 15:[address] DOSE: 703.85 mGy.cm HISTORY: L headache, facial numbness TECHNIQUE: Multiaxial CT images of the head were performed without the use of intravenous contrast. Automated exposure control was utilized for this study. A dose lowering technique was utilized adhering to the principles of ALARA. Comparison: Head CT and Brain MRI 06/25/2023. Findings: The paranasal sinuses and mastoid air cells are clear. The calvarium and skull base are intact. The ventricles and sulci are within normal limits. There is no mass, hematoma, midline shift, or acute infarct. Impression: No acute intracranial abnormality. ACT 112: Negative or not required by law. Electronically signed by: Jatin Longoria M.D. 06/27/2023 3:42 PM Chest X-Ray 06/27/23 15:11 XR chest 1V not portable HISTORY: neuro deficit, acute stroke suspected COMPARISON: Chest 06/25/2023. FINDINGS: The lungs are clear. Cardiac silhouette is normal in size. No pleural effusions. No pneumothorax. IMPRESSION: No acute process. ACT 112: Negative or not required by law. Electronically signed by: Jatin Longoria M.D. 06/27/2023 4:08 PM Brain MRI 06/27/23 17:35 MRI OF THE BRAIN WITHOUT IV CONTRAST CLINICAL HISTORY: Strokelike symptoms. Right facial droop. Facial numbness. COMPARISON STUDY: CT of the brain dated 06/27/2023. MRI of the brain dated 06/25/2023. TECHNIQUE: MRI of the brain was performed utilizing various T1 and T2-weighted sequences in the axial, sagittal, and coronal planes. IV contrast was not administered for this examination. FINDINGS: Brain parenchyma: The brain parenchyma is normal in appearance. There is no hemorrhage or mass effect. There is no restricted diffusion to suggest acute ischemia. Nation-white matter differentiation is preserved. No extra-axial fluid collection is seen. The cerebellar tonsils are normal in configuration. Ventricles, sulci, and cisterns: Normal in configuration. Pituitary and sella: Unremarkable. Intracranial vasculature: Normal flow voids are maintained at the skull base. Orbits: The bony orbits are grossly intact. Orbital contents are normal in appearance. Sinuses and mastoids: Clear. Calvarium: Unremarkable. Cervical cord: Partially visualized cervical spinal cord is normal in morphology and signal intensity. IMPRESSION: No acute intracranial abnormality. ACT 112: Negative or not required by law. Electronically signed by: Wicho Cruz M.D. 06/27/2023 6:49 PM Abdomen/Pelvis CT 06/27/23 17:53 CT SCAN OF THE ABDOMEN AND PELVIS WITHOUT IV CONTRAST CLINICAL HISTORY: Generalized abdominal pain. COMPARISON STUDY: Abdominal CT dated 06/25/2023. TECHNIQUE: CT scan of the abdomen and pelvis is performed from the lung bases to the proximal femora. Images are reviewed in the axial, sagittal, and coronal planes. IV contrast was not administered for this examination. A dose lowering technique was utilized adhering to the principles of ALARA. CT DOSE: 1444.07 mGy.cm FINDINGS: Lung bases: The heart is normal in size and without pericardial effusion. A 5 mm right lower lobe pulmonary nodule on image #36 and a 3 mm lingular nodule on image #21 are unchanged. There are scattered calcified granulomas. No airspace consolidation or pleural effusion is identified. Liver: The unenhanced liver is normal in size, contour, and attenuation. There is no intrahepatic biliary ductal dilatation. Gallbladder: Surgically absent noting clips in the gallbladder fossa. Spleen: Normal in size and attenuation. Pancreas: Unremarkable. Adrenal glands: Unremarkable. Kidneys: The unenhanced kidneys are normal in size and without hydronephrosis. No renal calculi are identified. There is no evidence of contour deforming mass lesion.. Abdominal vasculature: The abdominal aorta is normal in course and caliber. Bowel: No bowel obstruction is seen. The appendix is well-visualized and normal. Peritoneum: There is no intraperitoneal free air or abdominal ascites. There is a fat-containing umbilical hernia. Lymphadenopathy: None. Pelvic viscera: The bladder, prostate, and seminal vesicles are normal as visualized. Skeletal structures: No lytic or blastic lesions are seen. There is mild sclerotic change noted in the sacroiliac joints. IMPRESSION: 1. No acute infectious or inflammatory findings are identified in the abdomen or pelvis. No significant change from 06/25/2023. 2. Bibasilar pulmonary nodules measure up to 6 cm. These are unchanged from 10/24/2023 but new from 2016. Follow-up will be required. 3. Additional findings as above. ACT 112: Negative or not required by law. Electronically signed by: Wicho Cruz M.D. 06/27/2023 7:30 PM Discharge Plan Visit Data Chief Complaint: TIA Symptoms Stated Complaint: TIA SYMPTOMS ED Provider: Grady Dominique Discharge Problem: Facial droop, Slurred speech, Headache, Hypertension Patient Disposition: Admitted As Inpatient Discharge Instructions Interventions: ED Discharge Assessment Last Done: 06/27/23 18:45 Discharge Problem: Headache Qualifiers: Headache type: unspecified Headache chronicity pattern: unspecified pattern I ntractability: not intractable Qualified Code(s): R51.9 - Headache, unspecified Hypertension Qualifiers: Hypertension type: unspecified Qualified Code(s): I10 - Essential (primary) hypertension
[2023-06-27] MEDS: SODIUM CHLORIDE 0.9% 1,000 ML IV SCH (16:23)
[2023-06-27] MEDS: KETOROLAC TROMETHAMINE 15 MG/ML VIAL IV ONE (16:25)
[2023-06-27] MEDS: diphenhydrAMINE 50 MG/ML VIAL IV STA (17:17)
[2023-06-27] MEDS: PROCHLORPERAZINE 2 ML IV ONE (17:17)
[2023-06-27] MEDS: ASPIRIN CHEW 324 MG PO STA (17:17)
[2023-06-27] MEDS ORDERED: PHARMACIST DISCHARGE MED REC CONSULT PRN (17:35)
--- NOTE | 2023-06-27 17:53 | History & Physical Report ---
Date of Service June 27, 2023 Assessment & Plan (1) Facial droop: Plan: Assessment: 1. TIA/strokelike symptoms recurrent from 48 hours ago with left-sided facial numbness left-sided headache with right-sided facial droop with myoclonic jerking of the right upper and lower extremity. Neurology consulted and aware the consult ER provider spoke with neurology. Will repeat the MRI of the brain for completeness. We have ordered the stroke protocol. 2. Left lower quadrant abdominal discomfort. Will do a CT of the abdomen pelvis for completeness. 3. Diabetes mellitus type 2 diet controlled. We have ordered Accu-Cheks to be called less than 80 or greater than 180. If greater than 180 will consider sliding scale coverage. Will check a hemoglobin A1c. 4. History of migraine cephalgia. The patient is being medicated by for his headache in the ER currently. His headache is down to a 1 out of 10. 5. Chronic neck pain he had Toradol for this in the ER he does not have neck pain at this time. 7. Dyslipidemia statin therapy is been ordered. 8. GERD continue home meds 9. History of asthma without acute exacerbation. Plan: As described above. Please refer to orders for further planning. Await MRI results and CT results and neurology's input. Observation admission for now History of Present Illness Chief Complaint: Left facial numbness with right-sided facial droop. Primary Care Provider: DO Kiesha Hodge 42-year-old male who just had a 24-hour observation admission for possible TIA versus versus Abraham's palsy versus neuromuscular disorder. Neurology saw the patient on consultation the patient was discharged on prednisone. In addition Lyme disease was ruled out during that admission. The patient's symptomatology completely resolved. Today however he began to get left-sided facial numbness with a left-sided headache followed by right-sided facial droop. He presented to the ER for further evaluation and treatment. CT of the head was negative again today. Full-strength aspirin was recommended and we are called for admission. And consultation with neurology ER provider spoke with neurology on-call who will see the patient tomorrow. Recommend possible consideration for repeat MRI we will do that. I see no clinical need for repeat CTAs at this time. Admit the patient via the stroke protocol will obtain an echocardiogram for completeness with the stroke protocol. Do neurochecks. And await further input from neurology. Allergies Allergy/AdvReac Type Severity Reaction Status Date / Time erythromycin base Allergy Severe vomiting Verified 06/25/23 14:13 sulfisoxazole Allergy Severe vomiting Verified 06/25/23 14:13 amoxicillin [From Augmentin] AdvReac Intermediate Dizziness Verified 06/25/23 14:13 /Chest tightness / fast heart beat clavulanic acid AdvReac Intermediate Dizziness Verified 06/25/23 14:13 [From Augmentin] / chest tightness / fast heart beat levofloxacin AdvReac Intermediate DIZZINESS Verified 06/25/23 14:13 / COGNITIVE ISSUES prednisone AdvReac Unknown Unknown Verified 06/25/23 14:13 doxycycline AdvReac Intermediate Back Pain Uncoded 06/25/23 14:13 Home Medications Medication Instructions Recorded Confirmed Type sumatriptan succinate 6 mg/0.5 mL 6 mg (0.5 mL) subcut DIRECTED 06/20/20 06/27/23 Rx subcutaneous solution PRN Migraine Headache #2 mL albuterol sulfate 2.5 mg/3 mL 2.5 mg (3 mL) inhalation QID PRN 04/27/22 06/27/23 Rx (0.083 %) solution for nebulization Shortness Of Breath Or Wheezing #75 mL albuterol sulfate 90 mcg/actuation 2 puff inhalation DIRECTED PRN 08/14/22 06/27/23 Rx aerosol inhaler Shortness Of Breath Or Wheezing #8.5 grams celecoxib 200 mg capsule (Celebrex) 200 mg PO DAILY PRN pain 30 days 02/20/23 06/27/23 Rx #30 caps ergocalciferol (vitamin D2) 1,250 1,250 mcg PO Q7D #12 caps 06/18/23 06/27/23 Rx mcg (50,000 unit) capsule tirzepatide 2.5 mg/0.5 mL 2.5 mg subcut WK 06/25/23 06/27/23 History subcutaneous pen injector (Mouncharlettero) prednisone 10 mg tablet See Rx Instructions .Route 06/26/23 06/27/23 Rx .COMPLEX #45 tabs aspirin 81 mg tablet,delayed 81 mg PO DAILY #30 tabs 06/27/23 06/27/23 Rx release lamotrigine 25 mg tablet 25 mg PO HS #30 tabs 06/27/23 06/27/23 Rx Past Med/Surg History Medical History Somatic dysfunction of both lower extremities Nocturnal hypoxemia BMI greater than 40 Elevated LFTs Obstructive sleep apnea Asthma Musculoskeletal chest pain Mononucleosis Leg pain, left Ileus Abdominal pain Diverticulosis RUQ abdominal pain History of orthopedic surgery Pneumonia Asthma Surgical History Status post excision of lipoma (11/24/15) Left upper abdomen. History of surgery on left wrist History of cholecystectomy (08/28/13) History of arthroscopy of right shoulder (11/08/15) Impingement syndrome of right shoulder s/p subacromial decompression with partial acromioplasty and Eliane procedure. History of arthroscopy of left knee (11/21/16) Right medial menisectomy History of ankle surgery (06/27/17) left. Removal of deep implant. Family History Father Hearing loss Allergies Brother Asthma Allergies Mother Allergies Other Arthritis Sinusitis Denies family history of Ovarian cancer Prostate cancer Myocardial infarction Breast cancer Lung cancer Colorectal cancer Stroke Social History Smoking Status: Never smoker Second Hand Exposure: No; Do You Dip or Chew Tobacco: No; Hx Alcohol Use: No Hx Substance Use: No Preferred Language: Lebanese Communication Ability: Effective Visual Impairment: Limited Hearing Ability: Normal Garage Hand Required: No Beliefs That Will Affect Care: None marital status: Current Living Situation: Spouse and Family Current Living Situation Comment: 2 kids current occupational status: employed 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 In addition the patient admits to some left-sided lower quadrant abdominal pain on and off over the last 48 hours Physical Exam Physical Exam: In General: In general pleasant 42-year-old male who is alert and oriented x 3 at time my exam accompanied by his and his mother at the time my examination we did ask him if he permitted both individuals to be present during our interview and exam and he did shelia permission. HEENT: Normocephalic atraumatic pupils are equal round and reactive to light bilaterally. No scleral icterus no conjunctival injection external auditory canals are patent septum is in the midline nose is without discharge oral mucosa is pink and moist without lesion. The patient does have intermittent right- sided facial droop. When engaged in conversation it seems to be less then when focused on the facial droop. Appears to be waxing/waning NECK: Supple no rigidity no lymphadenopathy no thyromegaly no carotid bruits no JVD no masses. HEART: Regular rate and rhythm I do not appreciate any ectopy or rub. No murmur. LUNGS: Clear to auscultation bilaterally and anteriorly with no evidence of adventitious sounds/wheezes rales or rhonchi. ABDOMEN: Soft mild tenderness to palpation left lower quadrant, no rebound, no peritoneal signs, positive bowel sounds, no appreciable organomegaly. EXTREMITIES: Intact, no peripheral cyanosis, clubbing or edema. Strength is 5 out of 5 in extremities x4, no pathological reflexes. NEUROLOGICAL: Cranial nerves II through XII are grossly intact however the patient does endorse decreased sensation with fine touch on the left side of his face in the trigeminal nerve distribution compared to the right. In addition he has what he describes as uncontrollable shaking of the right upper and lower extremity intermittently. This symptom was observed while I was in the room when he was completely oriented and talking with full conversation.. Results & Data Results & Data Vital Signs (Past 12 Hours) Vital Signs Temp Pulse Resp BP Pulse Ox O2 Del Method 06/27/23 17:16 108 H 23 152/95 H 99 Room Air 06/27/23 17:01 108 H 23 179/109 H 96 Room Air 06/27/23 16:47 109 H 06/27/23 15:01 36.3 C L 125 H 20 171/102 H 99 Room Air PG Care Time/CCT Total # of Minutes Spent Total Time Spent with Patient: Total time spent is greater than 50% in coordination of care (as documented) at patient's floor/unit and/or counseling patient: Coding Level of Care Code 97421 INT INP/OBS CARE 3/75MIN Diagnoses Facial droop R29.810
--- NOTE | 2023-06-27 18:51 | Magnetic Resonance Report ---
MRI OF THE BRAIN WITHOUT IV CONTRAST CLINICAL HISTORY: Strokelike symptoms. Right facial droop. Facial numbness. COMPARISON STUDY: CT of the brain dated 06/27/2023. MRI of the brain dated 06/25/2023. TECHNIQUE: MRI of the brain was performed utilizing various T1 and T2-weighted sequences in the axial , sagittal, and coronal planes. IV contrast was not administered for this examination. FINDINGS: Brain parenchyma: The brain parenchyma is normal in appearance. There is no hemorrhage or mass effect . There is no restricted diffusion to suggest acute ischemia. Nation-white matter differentiation is pr eserved. No extra-axial fluid collection is seen. The cerebellar tonsils are normal in configuration. Ventricles, sulci, and cisterns: Normal in configuration. Pituitary and sella: Unremarkable. Intracranial vasculature: Normal flow voids are maintained at the skull base. Orbits: The bony orbits are grossly intact. Orbital contents are normal in appearance. Sinuses and mastoids: Clear. Calvarium: Unremarkable. Cervical cord: Partially visualized cervical spinal cord is normal in morphology and signal intensity . IMPRESSION: No acute intracranial abnormality. ACT 112: Negative or not required by law. Electronically signed by: Wicho Cruz M.D. 06/27/2023 6:49 PM
[2023-06-27] MEDS ORDERED: ALBUTEROL 0.083% NEBU SOLN 3 ML VIAL INH PRN (19:14)
[2023-06-27] MEDS ORDERED: ALBUTEROL HFA 8 GM INHALER INH PRN (19:14)
--- NOTE | 2023-06-27 19:32 | CT Scan Report ---
CT SCAN OF THE ABDOMEN AND PELVIS WITHOUT IV CONTRAST CLINICAL HISTORY: Generalized abdominal pain. COMPARISON STUDY: Abdominal CT dated 06/25/2023. TECHNIQUE: CT scan of the abdomen and pelvis is performed from the lung bases to the proximal femora. Images are reviewed in the axial, sagittal, and coronal planes. IV contrast was not administered for this examination. A dose lowering technique was utilized adhering to the principles of ALARA. CT DOSE: 1444.07 mGy.cm FINDINGS: Lung bases: The heart is normal in size and without pericardial effusion. A 5 mm right lower lobe pul monary nodule on image #36 and a 3 mm lingular nodule on image #21 are unchanged. There are scattered calcified granulomas. No airspace consolidation or pleural effusion is identified. Liver: The unenhanced liver is normal in size, contour, and attenuation. There is no intrahepatic ermelinda iary ductal dilatation. Gallbladder: Surgically absent noting clips in the gallbladder fossa. Spleen: Normal in size and attenuation. Pancreas: Unremarkable. Adrenal glands: Unremarkable. Kidneys: The unenhanced kidneys are normal in size and without hydronephrosis. No renal calculi are i dentified. There is no evidence of contour deforming mass lesion.. Abdominal vasculature: The abdominal aorta is normal in course and caliber. Bowel: No bowel obstruction is seen. The appendix is well-visualized and normal. Peritoneum: There is no intraperitoneal free air or abdominal ascites. There is a fat-containing umbi lical hernia. Lymphadenopathy: None. Pelvic viscera: The bladder, prostate, and seminal vesicles are normal as visualized. Skeletal structures: No lytic or blastic lesions are seen. There is mild sclerotic change noted in th e sacroiliac joints. IMPRESSION: 1. No acute infectious or inflammatory findings are identified in the abdomen or pelvis. No significa nt change from 06/25/2023. 2. Bibasilar pulmonary nodules measure up to 6 cm. These are unchanged from 10/24/2023 but new from . Follow-up will be required. 3. Additional findings as above. ACT 112: Negative or not required by law. Electronically signed by: Wicho Cruz M.D. 06/27/2023 7:30 PM
[2023-06-27] MEDS: MAGNESIUM SULFATE / D5W 1 GM/100 ML BAG IV ONE (20:08)
[2023-06-27] MEDS ORDERED: PNEUMOCOCCAL VACCINE (PCV20) 20-VAL CONJ-DIP CRM/PF 0.5 ML SYR IM ONE (20:31)
[2023-06-27] MEDS: HEPARIN SOD 5,000 UNIT/0.5 ML VIAL SQ SCH (21:22)
[2023-06-27] MEDS: lamoTRIgine 25 MG TAB PO SCH (21:22)
[2023-06-27] MEDS: ATORVASTATIN 40 MG TAB PO SCH (21:22)
[2023-06-28] MEDS: KETOROLAC TROMETHAMINE 15 MG/ML VIAL IV ONE (06:37)
[2023-06-28] MEDS: KETOROLAC TROMETHAMINE 15 MG/ML VIAL ONE (06:38)
[2023-06-28 06:54] LABS: Hematocrit (blood only) 40.5 % (42.0-52.0); Hemoglobin 13.9 g/dl (14.0-18.0); Mean Corpuscular Hemoglobin 30.4 pg (25.0-34.0); Mean Corpuscular Hgb Conc 34.3 g/dL (32.0-36.0); Mean Corpuscular Volume 88.6 fL (80.0-100.0); Mean Platelet Volume 9.6 fL (9.4-12.4); Platelet Count 364 K/uL (130-400); RDW Standard Deviation 42.1 fL (36.4-46.3); Red Blood Count 4.57 M/uL (4.70-6.10); White Blood Count 17.52 K/ul (4.8-10.8)
[2023-06-28 07:18] LABS: Basophils # (auto) 0.05 K/uL (0.00-0.20); Basophils % (auto) 0.3 %; Eosinophils # (auto) 0.07 K/uL (0.00-0.50); Eosinophils % (auto) 0.4 %; Immature Granulocytes # (auto) 0.05 K/uL (0.01-0.20); Immature Granulocytes % (auto) 0.3 %; Lymphocytes # (auto) 5.24 K/uL (1.20-3.40); Lymphocytes % (auto) 29.9 %; Monocytes # (auto) 0.91 K/uL (0.11-0.59); Monocytes % (auto) 5.2 %; Neutrophils % (auto) 63.9 %
[2023-06-28] MEDS: predniSONE 10 MG TABLET PO SCH (07:26)
[2023-06-28] MEDS: ASPIRIN 81 MG ECTAB PO SCH (07:26)
[2023-06-28 07:28] LABS: Albumin Globulin Ratio 1.4 (0.9-2); Albumin Level 4.1 gm/dl (3.4-5.0); Bilirubin,Total 0.3 mg/dl (0.2-1.0); Calcium 9.2 mg/dl (8.6-10.3); Creatinine Clr Calc Pharmacy 151.5 ml/min; Est GFR (African American) 123.1 ml/min; Est GFR (Non-African American) 106.2 ml/min; Globulin 2.9 gm/dl (2.5-4.0); Potassium 3.8 mmol/L (3.5-5.1)
[2023-06-28 07:44] LABS: Thyroid Stimulating Hormone 1.951 uIu/ml (0.300-4.500)
[2023-06-28 07:50] LABS: Estimated Average Glucose 126 mg/dl
[2023-06-28] MEDS ORDERED: ASPIRIN 81 MG ECTAB PO SCH (09:00)
--- NOTE | 2023-06-28 10:09 | Neurology Consultation ---
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 Evaluation pending with a neuromuscular disease specialist at . He is currently readmitted with recurrence of facial paresthesias, persistent right lower and subtle upper facial weakness and low-grade frontal headache without associated migrainous features such as nausea or light or sound sensitivity. He has considerable anxiety regarding his symptoms which probably contributed to his symptom escalation and readmission to the [facility]. I suspect his facial paresthesias and mild right peripheral seventh neuropathy are related to intense paracervical and jaw muscle spasm which has been problematic recently. There is no evidence of a COMMUNITY DEVELOPMENT AIDE process on recent extensive imaging including brain MRI and CT angiography of the head and neck. A repeat CT of the head was unremarkable as well. Complex migraine is certainly possible and can also be considered a type of channelopathy (similar to myotonia congenita). He did have COVID-19 infection a few weeks ago which may be a triggering factor for his recent symptomatic exacerbation. Given the possibility of imaging negative stroke, I would recommend aspirin 81 mg/day. Would avoid a statin at this time, however, given what looks like an underlying muscle disease as above. Would obtain a transthoracic echocardiogram with bubble study if not already done so. Would recommend 30-day mobile cardiac outpatient telemetry. May continue with low-dose lamotrigine to address myotonia. My preference, however, would be to have him discontinue this medication prior to his evaluation at . Other potential treatments for myotonia would include mexiletine, phenytoin, or other sodium channel blockers. In some instances calcium channel blockers and carbonic anhydrase inhibitors such as acetazolamide can be utilized. Again, additional testing to be completed at that may include EMG and lab evaluation (genetic testing for myotonia?) Continue supportive medical care. He does have a prescription for sumatriptan which she utilizes to address migraines. May continue with prednisone taper as previously recommended given what looks like a right peripheral seventh palsy. Recent Lyme screening was negative. Consider treatment of patient's anxiety. Consider short-term lorazepam upon discharge, consider an SSRI, buspirone or hydroxyzine. Please call with any questions. History of Present Illness Reason for Consultation: TIA? Atypical migraine? Requesting Physician: Teo Attending Physician: Joshua Melo MD History of Present Illness The patient is a 42-year-old male, readmission for facial numbness and weakness, please see my consultation from June 27, 2023 for details. He has a history of elevated CKs, significant generalized muscular hypertrophy, had seen rheumatology recently who had referred him to a neuromuscular disease specialist at , this appointment is pending shortly. 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 In this context, he has been developing involuntary facial paresthesias and facial weakness, right upper and lower face, which appears to resemble an incomplete peripheral seventh palsy. The symptoms occur in the context of significant paracervical and jaw muscle tightness and spasm. He complains of a longstanding history of generalized muscle spasms, typically worse while at rest, some improvement with activity. His history is also notable for several fasciotomies to address compartment syndrome. He also endorses a history of episodic migraine, although episodes are quite infrequent, but occur with associated nausea, emesis, light and sound sensitivity, no aura. He may have had some associated paresthesias or shaking of the limbs with some of these migraines in the past. No known history of stroke. Recent extensive neuroimaging evaluation including MRI of the brain and CT angiography of the head and neck are unremarkable. I had previously recommended aspirin 81 mg/day, outpatient 30-day cardiac monitoring, as well as a corticosteroid taper. He had contacted me yesterday complaining of a recurrence of facial paresthesias and weakness, he subsequently presented again to the emergency department for a repeat evaluation. He did have a repeat CT of the head that was unremarkable, I independently reviewed these images, no hemorrhage or acute process. He was hypertensive at the time of presentation although his blood pressure is currently normal. Currently, he complains of a very minor frontal headache without associated migrainous features such as nausea or light or sound sensitivity. He continues to exhibit subtle right lower and upper facial weakness, able to close the right eyelid and far of the brow. He also endorses some sensory disturbance, slight numbness for the right mid and lower aspect of the face. Does not complain of significant muscle cramps, spasms, or tetany at this time. Reiterates his history, however, of intermittent muscle spasms and stiffness, often worse while at rest, some improvement with physical activity. 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 He is not weak, in fact, he typically exhibits a high degree of muscular strength, power, in the context of generalized significant muscular hypertrophy. He indicates his father has a similar build. Allergies Allergy/AdvReac Type Severity Reaction Status Date / Time erythromycin base Allergy Severe vomiting Verified 06/25/23 14:13 sulfisoxazole Allergy Severe vomiting Verified 06/25/23 14:13 amoxicillin [From Augmentin] AdvReac Intermediate Dizziness Verified 06/25/23 14:13 /Chest tightness / fast heart beat clavulanic acid AdvReac Intermediate Dizziness Verified 06/25/23 14:13 [From Augmentin] / chest tightness / fast heart beat levofloxacin AdvReac Intermediate DIZZINESS Verified 06/25/23 14:13 / COGNITIVE ISSUES prednisone AdvReac Unknown Unknown Verified 06/25/23 14:13 doxycycline AdvReac Intermediate Back Pain Uncoded 06/25/23 14:13 Home Medications Medication Instructions Recorded Confirmed Type sumatriptan succinate 6 mg/0.5 mL 6 mg (0.5 mL) subcut DIRECTED 06/20/20 06/27/23 Rx subcutaneous solution PRN Migraine Headache #2 mL albuterol sulfate 2.5 mg/3 mL 2.5 mg (3 mL) inhalation QID PRN 04/27/22 06/27/23 Rx (0.083 %) solution for nebulization Shortness Of Breath Or Wheezing #75 mL albuterol sulfate 90 mcg/actuation 2 puff inhalation DIRECTED PRN 08/14/22 06/27/23 Rx aerosol inhaler Shortness Of Breath Or Wheezing #8.5 grams celecoxib 200 mg capsule (Celebrex) 200 mg PO DAILY PRN pain 30 days 02/20/23 06/27/23 Rx #30 caps ergocalciferol (vitamin D2) 1,250 1,250 mcg PO Q7D #12 caps 06/18/23 06/27/23 Rx mcg (50,000 unit) capsule tirzepatide 2.5 mg/0.5 mL 2.5 mg subcut WK 06/25/23 06/27/23 History subcutaneous pen injector (Eladio) prednisone 10 mg tablet See Rx Instructions .Route 06/26/23 06/27/23 Rx .COMPLEX #45 tabs aspirin 81 mg tablet,delayed 81 mg PO DAILY #30 tabs 06/27/23 06/27/23 Rx release lamotrigine 25 mg tablet 25 mg PO HS #30 tabs 06/27/23 06/27/23 Rx Patient History Medical History Somatic dysfunction of both lower extremities Nocturnal hypoxemia BMI greater than 40 Elevated LFTs Obstructive sleep apnea Asthma Musculoskeletal chest pain Mononucleosis Leg pain, left Ileus Abdominal pain Diverticulosis RUQ abdominal pain History of orthopedic surgery Pneumonia Asthma Surgical History Status post excision of lipoma (11/24/15) Left upper abdomen. History of surgery on left wrist History of cholecystectomy (08/28/13) History of arthroscopy of right shoulder (11/08/15) Impingement syndrome of right shoulder s/p subacromial decompression with partial acromioplasty and Eliane procedure. History of arthroscopy of left knee (11/21/16) Right medial menisectomy History of ankle surgery (06/27/17) left. Removal of deep implant. Family History Father Hearing loss Allergies Brother Asthma Allergies Mother Allergies Other Arthritis Sinusitis Denies family history of Ovarian cancer Prostate cancer Myocardial infarction Breast cancer Lung cancer Colorectal cancer Stroke Social History Smoking Status: Never smoker Second Hand Exposure: No; Do You Dip or Chew Tobacco: No; Hx Alcohol Use: No Hx Substance Use: No Preferred Language: Moldovan Communication Ability: Effective Visual Impairment: Limited Hearing Ability: Normal Hostess Cashier Required: No Beliefs That Will Affect Care: None marital status: Current Living Situation: Spouse Current Living Situation Comment: 2 kids current occupational status: employed 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 How many Children do You have: 2 Feels Safe at Home: Yes Childhood Exposure to Second-Hand Smoke: No Dental Care, Regularly: Yes Physical Activity Frequency: Does not Exercise Seatbelt Use: always Sunscreen Use: Yes Assistive Devices: None Review of Systems Constitutional: no fever and no chills Eyes: no blind spots and no diplopia Ear, Nose, Mouth, Throat: no hearing loss Respiratory: no cough and no dyspnea Cardiovascular: no chest pain and no palpitations Gastrointestinal: no nausea and no vomiting Genitourinary: no dysuria Musculoskeletal: as per Subjective / HPI and + stiffness; no muscle weakness Integumentary: no rash and no lesions Neurologic: as per Subjective / HPI, + paresthesia and + headache(s); no tremor(s), no abnormal speech, no confusion and no memory loss Psychiatric: no depression and no anxiety Hematologic / Lymphatic: no easy bleeding and no easy bruising Exam (Neuro) Constitutional: well developed and well nourished; no acute distress Eyes: normal visual jiang by confrontation, PERRL and EOM intact bilaterally; no nystagmus Neurologic: Oriented to:: Person, Place and Time Memory: Short Term Intact and Remote Intact Attention: Span Intact and Concentration Intact Speech Fluency: negative Dysarthria or Dysfluency Speech Aphasia: negative Aphasia Fund of Knowledge: Current Events, Past History and Vocabulary Cranial Nerves: Normal II, III, IV, , V, VIII, IX, X, XI and XII; Abnorm VII (Mild to moderate right lower facial weakness, very mild right upper facial weakness) Motor Strength: Normal Lower Extremities and Normal Upper Extremities Motor Tone: Normal Lower Extremities and Normal Upper Extremities Muscle Bulk/Involuntary Movements: No Involuntary Movements and Muscle Hypertrophy (Generalized muscular hypertrophy noted) Sensation: Light Touch Intact, Pain/Temperature Intact, Vibration Intact and Proprioception Intact Coordination: Normal; negative Limited Balance, Dysdiadochokinesia, Finger-Nose Abnormal or Heel-Salazar Abnormal Deep Tendon Reflexes: Rt Triceps: 2+, Lt Triceps: 2+, Rt Biceps: 2+, Lt Biceps: 2+, Rt Brachioradialis: 2+, Lt Brachioradialis: 2+, Rt Patellar: 2+, Lt Patellar: 2+, Rt Ankle: 2+ and Lt Ankle: 2+ Gait: Normal Station and Gait Results & Data Vital Signs (Past 12 Hours) Vital Signs Temp Pulse Pulse Resp BP BP Pulse Ox 06/28/23 08:00 63 06/28/23 07:52 36.6 C 79 21 140/79 98 06/28/23 03:56 36.9 C 92 H 17 136/72 97 06/27/23 23:49 36.5 C 85 17 135/82 98 06/27/23 22:50 88 O2 Del Method 06/28/23 08:00 06/28/23 07:52 Room Air 06/28/23 03:56 Room Air 06/27/23 23:49 Room Air 06/27/23 22:50 Laboratory Results WBC 17.52, hemoglobin 13.9, hematocrit 40.5, platelet count 364, sodium 141, potassium 3.8, BUN 12, creatinine 0.86, glucose 90, hemoglobin A1c 6.0, calcium 9.2, magnesium 2.0, AST 23, ALT 24, total CK4 02, TSH 1.951. Diagnostic Findings CT of the head is as described in the HPI, previous brain MRI and CT angiography of the head and neck again reviewed, no abnormalities. Coding Level of Care Code 08534 INT INP/OBS CARE 375MIN Diagnoses Myotonia M62.89 Facial droop R29.810 Headache R51.9 Headache chronicity pattern: unspecified pattern Headache type: unspecified Intractability: not intractable Hypertension I10 Hypertension type: unspecified Time Spent (min) 80 Comment Total time includes patient contact, chart review, counseling, note preparation (3) Headache Headache chronicity pattern: unspecified pattern Headache type: unspecified Intractability: not intractable Qualified Code(s): R51.9 - Headache, unspecified (4) Hypertension Hypertension type: unspecified Qualified Code(s): I10 - Essential (primary) hypertension
--- NOTE | 2023-06-28 11:29 | Discharge Summary ---
Date of Service June 28, 2023 Admission HPI Per Admitting Provider Pleasant 42-year-old male who just had a 24-hour observation admission for possible TIA versus versus Abraham's palsy versus neuromuscular disorder. Neurology saw the patient on consultation the patient was discharged on p rednisone. In addition Lyme disease was ruled out during that admission. The patient's symptomatology completely resolved. Today however he began to get left-sided facial numbness with a left-sided headache followed by right-sided facial droop. He presented to the ER for further evaluation and treatment. CT of the head was negative again today. Full-strength aspirin was recommended and we are called for admission. And consultation with neurology ER provider spoke with neurology on-call who will see the patient tomorrow. Recommend possible consideration for repeat MRI we will do that. I see no clinical need for repeat CTAs at this time. Admit the patient via the stroke protocol will obtain an echocardiogram for completeness with the stroke protocol. Do neurochecks. And await further input from neurology. 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 No rales wheezing or rhonchi Cardiac-regular rate and rhythm, normal S1 and S2, no murmurs Abdomen-normal bowel sounds, nontender, no hepatosplenomegaly Extremities-no cyanosis, clubbing, or edema Neuro-mild right facial droop noted. No peripheral deficits. Sensory function within normal limits, strength symmetrical, no focal deficits Psych-normal affect, normal mood Discharge Data Allergies Allergy/AdvReac Type Severity Reaction Status Date / Time erythromycin base Allergy Severe vomiting Verified 06/25/23 14:13 sulfisoxazole Allergy Severe vomiting Verified 06/25/23 14:13 amoxicillin [From Augmentin] AdvReac Intermediate Dizziness Verified 06/25/23 14:13 /Chest tightness / fast heart beat clavulanic acid AdvReac Intermediate Dizziness Verified 06/25/23 14:13 [From Augmentin] / chest tightness / fast heart beat levofloxacin AdvReac Intermediate DIZZINESS Verified 06/25/23 14:13 / COGNITIVE ISSUES prednisone AdvReac Unknown Unknown Verified 06/25/23 14:13 doxycycline AdvReac Intermediate Back Pain Uncoded 06/25/23 14:13 Consultations 06/27/23 16:53 ED Decision to Admit Stat 06/27/23 17:31 Consult Neurology Routine Ordered Studies 06/27/23 15:09 CT head/brain wo con Stat 06/27/23 17:35 MR brain wo con Routine 06/27/23 17:53 CT Abd and Pelvis [CT abd pelvis wo con] Stat Hospital Course (1) Facial droop: This could simply be a right sided Abraham's palsy. Neurology evaluation a ppreciated. Brain MRI scan negative for CVA. (2) Hypertension: Elevated post admission which could be situational. Will need further monitoring as an outpatient (3) Type 2 diabetes mellitus: ADA diet. Sliding scale coverage as needed. (4) Hyperlipidemia: No statin coverage indicated at this time. 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 facial Abraham's palsy Activity: Resume your previous activity Non-emergency contact: Primary Care Provider Call non-emergency contact if: your symptoms worsen Follow-up/Referrals: Sanjeev Bingham DO [Primary Care Provider] - Diet: Carb Consistent or DM2 and Heart Healthy Addtl Attending Provider Instructions: Follow-up with primary care physician as soon as possible Pending Studies at Discharge: No Stand-Alone Forms: [employer], Smoking Cessation Medications and DC Order Prescriptions: Continued sumatriptan succinate 6 mg/0.5 mL solution 6 mg SQ DIRECTED PRN (Reason: Migraine Headache) Qty: 2 0RF albuterol sulfate 2.5 mg /3 mL (0.083 %) solution for nebulization 2.5 mg INHALATION QID PRN (Reason: Shortness Of Breath Or Wheezing) Qty: 75 0RF ergocalciferol (vitamin D2) 1,250 mcg (50,000 unit) capsule 1,250 mcg PO Q7D Qty: 12 0RF Rx Instructions: 1 tab po weekly for 12 weeks. Complete blood work after finishing prescription lamotrigine 25 mg tablet 25 mg PO HS Qty: 30 2RF Rx Instructions: hasnt picked up medication yet aspirin 81 mg tablet,delayed release (DR/EC) 81 mg PO DAILY Qty: 30 2RF albuterol sulfate 90 mcg/actuation HFA aerosol inhaler 2 puff INHALATION DIRECTED PRN (Reason: Shortness Of Breath Or Wheezing) Qty: 8.5 1RF celecoxib [Celebrex] 200 mg capsule 200 mg PO DAILY PRN (Reason: pain) 30 Days Qty: 30 2RF Mounjaro 2.5 mg/0.5 mL pen injector 2.5 mg SUBCUT WK prednisone 10 mg tablet See Rx Instructions .ROUTE .COMPLEX Qty: 45 0RF Rx Instructions: By mouth once daily: Take 6 tabs for 5 days then 5 tabs for 1 days then 4 tabs for 1 days then 3 tabs for 1 day then 2 tabs for 1 day 1 tab for 1 day. Discharge Orders: Discharge Order (Routine); Ordered 06/28/23 Ordered By: Joshua Devine/Other Patient Handouts: Managing Type 2 Diabetes Admission Data Admit Date/Time: 06/27/23 17:56 Attending Provider: Joshua Melo Admit Provider: Kamlesh Bruce Primary Care Provider: Sanjeev Bingham Other Providers: Kamlesh Bruce; Edwin Greene Coding Level of Care Code 79319 INP/OBS DISCH >30 MIN Diagnoses Facial droop R29.810 Hypertension I10 Hypertension type: unspecified Type 2 diabetes mellitus E11.9 Hyperlipidemia E78.5
--- NOTE | 2023-06-28 13:22 | XCELERA ---
[id number] [id number]
--- NOTE | 2023-06-29 10:04 | Electrocardiogram Report ---
Test Reason : Blood Pressure : / mmHG Vent. Rate : 118 BPM Atrial Rate : 118 BPM P-R Int : 162 ms QRS Dur : 080 ms QT Int : 306 ms P-R-T Axes : 061 007 048 degrees QTc Int : 428 ms Sinus tachycardia Low voltage QRS Borderline ECG When compared with ECG of 25-JUN-2023 15:14, No significant change was found Confirmed by Luis Kan ([id number]) on 06/29/2023 10:03:57 AM Referred By: Sanjeev Bingham Confirmed By:Luis Kan
[2023-07-03] MEDS ORDERED: ERGOCALCIFEROL 1250 MCG (50,000 UNITS) CAP PO SCH (09:00)
== END 2023-06-28 13:20 | disposition home or self-care (01) ==
LOC: EDINP 14:57 → ED 14:57 → SUATTDRO 17:56 → EDINP 18:45 → 2S 19:38